=== PATIENT | male | born 1990 | race Caucasian/White ===

== ENCOUNTER 2018-10-26 09:54 | Emergency (ER) | payer OTHER, SELFPAY ==
[2018-10-26 10:05] VITALS: BP 151/108; PULSE 129; RESP 18; TEMP 37.1; O2SAT 98
--- NOTE | 2018-10-26 10:15 | DI.RAD_ITS ---
SYMPTOM/DIAGNOSIS: PAIN AFTER FALL RIGHT SHOULDER: No fracture or dislocation is seen. IMPRESSION: Negative right shoulder.
--- NOTE | 2018-10-26 10:23 | ED.GENADUL_ITS ---
Discharge Plan Disposition Patient Disposition: HOME Condition: Good Discharge Details Chief Complaint: Orthopedic Clinical Impression: Injury of shoulder, right Primary Care Provider: Jace Thakkar ED Provider: Serge Swan Home Meds and New Rx's Prescriptions: Continued omeprazole 20 MG capsule,delayed release(DR/EC) 40 mg PO DAILY 30 Days Qty: 60 RF: 0 cyclobenzaprine 10 MG tablet 10 mg PO TID prn 10 Days Qty: 30 RF: 0 amlodipine 5 MG tablet 5 mg PO DAILY Qty: 30 RF: 11 naproxen sodium [Anaprox DS] 550 MG tablet 550 mg PO Q12H PRN Qty: 30 RF: 0 lisinopril 30 MG tablet 30 mg PO DAILY Qty: 90 RF: 3 Metoprolol Succinate 50 MG TAB.ER.24H 100 mg PO DAILY Qty: 60 RF: 11 Discharge Instructions Instructions: Shoulder Sprain (ED), Shoulder Pain (ED) Additional Instructions: Continue your prescribed Aleve, and may use Tylenol 650-1000 mg every 6 hours as needed for pain. Apply ice to area to reduce discomfort. Please wear sling for comfort. We have placed your name on the follow-up list for an appointment in orthopedic clinic. Please call [phone] tomorrow after the clinic has had an ability to review your case. Medical Decision Making 28-year-old male who slipped and fell onto his right shoulder with a lateral blow 2 days ago. No other injury at that time. Now with persistent aching right shoulder pain. Differential diagnosis includes subluxation, contusion, underlying fracture or AC joint injury. He does have mild tachycardia but has not taken his prescribed metoprolol this morning as this is normal routine Patient was referred for X ray which does not reveal an underlying fracture or dislocation. I question high riding clavicular and an AC joint separation. Additionally, cannot rule out SLAP lesion or rotator cuff injury. Patient placed in sling, discussed with him the importance of follow-up for recheck. He will manage the discomfort conservatively at home with ice and [id number] NSAIDs HPI General Mode of arrival: ambulatory . Date/Time Provider Initiated Documentation: 10/26/18 10:15 . Limitations to Documentation: no limitations . Information obtained by: patient . History of Present Illness 28 year old M presents to the emergency department with the chief complaint of Lateral blow to right shoulder 2 days ago, aching pain, described as moderate, Quality is described as aching, and is localized to the right and upper extremity. Patient reports no radiation. Patient started experiencing this day(s) and it has been constant. Immobilization improves symptom(s), and Rest improves symptom(s), No exacerbating factors reported and Movement worsens symptoms . Patient notes no other symptoms.; denies chest pain, headaches and shortness of breath. Related Data Home Medications Medication Instructions Recorded Confirmed amlodipine 5 mg PO DAILY #30 tab-cap 01/28/18 cyclobenzaprine 10 mg PO TID prn 10 Days #30 01/28/18 tab-cap naproxen sodium [Anaprox DS] 550 mg PO Q12H PRN #30 tab-cap 01/28/18 omeprazole 40 mg PO DAILY 30 Days #60 tab-cap 01/28/18 lisinopril 30 mg PO DAILY #90 tab-cap 02/08/18 Previous Rx's Medication Instructions Recorded amlodipine 5 mg PO DAILY #30 tab-cap 01/28/18 cyclobenzaprine 10 mg PO TID prn 10 Days #30 01/28/18 tab-cap naproxen sodium [Anaprox DS] 550 mg PO Q12H PRN #30 tab-cap 01/28/18 omeprazole 40 mg PO DAILY 30 Days #60 tab-cap 01/28/18 lisinopril 30 mg PO DAILY #90 tab-cap 02/08/18 Allergies Allergy/AdvReac Type Severity Reaction Status Date / Time No Known Allergies Allergy Unverified 02/08/18 08:28 General Stated Complaint: Orthopedic LEV: 4 Review of Systems Review of Systems 6 systems reviewed and otherwise neg [facility] Surgical History Bone to lungs Social History adopted: Yes Smoking/Tobacco Use Status: Never seatbelt use: always helmet use: Yes helmet use: always Exam Narrative Exam Narrative: GEN: awake, alert, oriented 3. Pleasant, well groomed, interactive. HEAD: Normocephalic, atraumatic ENT: Mucous membranes moist, oropharynx unremarkable, External ear exam unremarkable EYES: PERRL, EOMI NECK: Full ROM, no TEAGAN, no menigismus CHEST/RESP: Nontender, clear to auscultation bilateral, no wheeze/rhonchi/rales CARDIOVASCULAR: Regular and tachycardic, no murmur, rub shaniqua. 2+ Rad pulse bilateral ABDOMEN: Soft, nontender, no mass. +Bowel sounds EXT: Right range of motion of the upper extremity limited by pain. The right upper extremity is diffusely tender over the anterior humeral head and AC joint. 2+ distal radial pulse bilaterally. Sensation intact throughout. Neuro: Grossly normal neurologic exam, conversant, interactive. Psych: Speech fluent, thoughts congruent, affect normal Course Vital Signs Temperature 37.1 C 10/26/18 10:05 Pulse 129 H 10/26/18 10:05 Respiratory Rate 18 10/26/18 10:05 Blood Pressure 151/108 H 10/26/18 10:05 Pulse Oximetry 98 10/26/18 10:05 Temperature 37.1 C 10/26/18 10:05 Temperature Source Temporal Artery Scan 10/26/18 10:05 Pulse 129 H 10/26/18 10:05 Respiratory Rate 18 10/26/18 10:05 Respiratory Effort Non-Labored 10/26/18 10:05 Blood Pressure 151/108 H 10/26/18 10:05 Blood Pressure Position Sitting 10/26/18 10:05 Pulse Oximetry 98 10/26/18 10:05 Oxygen Delivery Method Room Air 10/26/18 10:05 Oxygen Flow Rate 0 10/26/18 10:05
--- NOTE | 2018-10-26 10:23 | NUR.NOTE ---
Nursing Note: Off unit to XR
== END 2018-10-26 10:52 | disposition home or self-care (01) ==
PROVIDERS: Emergency Provider Emergency Medicine; PCP Family Medicine
DX: S49.91XA Unspecified injury of right shoulder and upper arm, initial encounter (principal); W00.0XXA Fall on same level due to ice and snow, initial encounter; I10 Essential (primary) hypertension
CPT/HCPCS: 99283; 73030; L3650

== ENCOUNTER 2019-01-10 10:22 | Outpatient (CLI) | payer OTHER, SELFPAY ==
--- NOTE | 2019-01-10 10:32 | DI.RAD_ITS ---
SYMPTOM/DIAGNOSIS: F/U RIGHT SHOULDER: No soft tissue, bony or joint abnormality is seen.
== END 2019-01-10 10:42 ==
PROVIDERS: PCP Family Medicine; Visit Provider Orthopaedic Surgery
DX: S43.51XD Sprain of right acromioclavicular joint, subsequent encounter (principal)
CPT/HCPCS: 73030

== ENCOUNTER 2019-02-24 23:10 | Emergency (ER) | payer OTHER, SELFPAY ==
[2019-02-24 23:14] VITALS: BP 162/90; PULSE 125; RESP 18; TEMP 36.5; O2SAT 98
--- NOTE | 2019-02-24 23:43 | W.ED.GENAD ---
Discharge Plan Disposition Patient Disposition: HOME Condition: Good Discharge Details Chief Complaint: Abd Prob Clinical Impression: Abscess Primary Care Provider: Manuel Rivera ED Provider: Robinson Baca Home Meds and New Rx's Prescriptions: New doxycycline hyclate 100 mg tablet 100 mg PO BID Qty: 20 RF: 0 No Action naproxen sodium [Anaprox DS] 550 mg tablet 550 mg PO Q12H PRN Qty: 30 RF: 0 Metoprolol Succinate 50 MG TAB.ER.24H 100 mg PO DAILY Qty: 60 RF: 11 amlodipine 5 mg tablet 5 mg PO DAILY Qty: 30 RF: 11 lisinopril 30 mg tablet 30 mg PO DAILY Qty: 90 RF: 3 Discharge Instructions Instructions: Abscess (ED) Additional Instructions: Please take Tylenol and Motrin as needed for pain. Please take the antibiotic as directed. If you notice any worsening of your pain, symptoms, redness, or swelling please return immediately for reevaluation. If you notice any worsening of your symptoms, or any new symptoms such as vomiting, diarrhea, fever, chills, shortness of breath, chest pain, numbness, weakness, or fainting , please return immediately to the emergency department for reevaluation. Please follow up with your primary care provider as soon as possible for reassessment and reevaluation. As always, it was a pleasure participating in your medical care today. Stand Alone Forms: Work Release Referrals: Manuel Rivera [Primary Care Provider] - Medical Decision Making This is a pleasant 28-year-old male who presents today for evaluation of a firm external lesion on his right scrotum. Patient states that he noticed that this morning, however he chronically had a small lesion there in the past, but it is notably worsened. He denies any recent trauma, fever, or chills. He denies any history of STDs. Exam demonstrates a notably fluctuant lesion on the superficial component of the scrotum, no evidence of deep involvement. Bedside ultrasound confirms loculated fluid collection. Signs and symptoms are notably concerning for abscess in conjunction with the evidence of erythema noted and the right inguinal lymph node. Limited bedside ultrasound shows no evidence of involvement in the deep structures, and no area of concern close to the testicles. Testicles are actually completely nontender, cremasteric reflexes present bilaterally. The patient's scrotum of the area of fluid collection was anesthetized with 2 mL's of lidocaine with epinephrine, an 18-gauge needle was then placed and a notable amount of initially purulent followed by slightly serous fluid was removed patient states that the pain is notably improved after this. He is feeling much better postprocedure. There is no evidence of subcutaneous crepitus on exam, no significant traveling erythema going up the groin, to the abdomen, or to the rest of the scrotum. He has no red flags of diabetes or immunosuppression. Signs and symptoms at this time are clinically inconsistent with necrotizing fasciitis or Fourniers gangrene. The patient is afebrile even on evaluation with oral temperature, he is feeling much better after the I&D, and feels comfortable going home. Do feel that the patient would benefit from treatment for cellulitis. With evidence of abscess we will prescribe doxycycline, we will give the first dose here today. We will also give 250 mg of IM Rocephin here. We will have the patient return within 48 hours for wound check. If he is improving no additional management will be indicated however we will recommend continuation of antibiotics. He is worsening he may require further laboratory evaluation and imaging. I do not see any current clinical indication at this time for further laboratory work-up or imaging with his notable improvement of his symptoms after I&D, signs and symptoms clinically consistent with mild superficial abscess. I have extensively reviewed the treatment plan and discharge instructions with the patient and their family. I have addressed all patient concerns at this time. The patient and family was made aware of what symptoms to monitor for that would warrant a return to the emergency department. Discussed the plan with the patient and family, they demonstrate verbal understanding and agreement with our assessment and plan at this time. HPI General Date/Time Provider Initiated Documentation: 02/24/19 23:12. HPI Narrative: This is a 28-year-old male with a past medical history of hypertension who presents today for evaluation of lump in his right groin. Patient states that this morning he woke up and noticed a firm red lesion in his scrotum on the right-hand side, as well as a mild lump in his right groin. He denies any trauma, he does do heavy lifting, states that this was unrelated. He does admit to a history of a small lump on his scrotum in the past year, but denies ever being this become painful. He denies any dysuria, hematuria, hematospermia, testicular pain, penile pain, history of MRSA, or history of STD. He did have intercourse last night and this was otherwise unremarkable. He denies any other complaints, and any other associated factors. Pain is made worse with palpation and movement. He has not taken any NSAIDs for pain relief. Related Data Home Medications Medication Instructions Recorded Confirmed naproxen sodium 550 mg tablet 550 mg PO Q12H PRN #30 tab-cap 11/01/18 02/24/19 amlodipine 5 mg tablet 5 mg PO DAILY #30 tab-cap 01/26/19 02/24/19 lisinopril 30 mg tablet 30 mg PO DAILY #90 tab-cap 02/15/19 02/24/19 doxycycline hyclate 100 mg PO BID #20 tab 02/25/19 Previous Rx's Medication Instructions Recorded naproxen sodium 550 mg tablet 550 mg PO Q12H PRN #30 tab-cap 11/01/18 amlodipine 5 mg tablet 5 mg PO DAILY #30 tab-cap 01/26/19 lisinopril 30 mg tablet 30 mg PO DAILY #90 tab-cap 02/15/19 doxycycline hyclate 100 mg PO BID #20 tab 02/25/19 Allergies Allergy/AdvReac Type Severity Reaction Status Date / Time No Known Allergies Allergy Unverified 02/24/19 23:23 General Stated Complaint: Abd Prob LEV: 3 Review of Systems Review of Systems All systems reviewed & are unremarkable except as noted in HPI and below PFSH Surgical History Hx of umbilical hernia repair (Resolved) Bone to lungs Social History Smoking/Tobacco Use Status: Never Alcohol Intake: current Alcohol Intake frequency: a few times a month Drug use: Never Adopted: Yes Seatbelt use: always Helmet use: Yes Helmet use: always Do you feel safe at home: Yes Do you feel safe in your relationship?: Yes Exam Narrative Exam Narrative: 1.Const: Well-nourished, Well-developed, appearing stated age 2.Eyes: PERRL, no conjunctival injection, and symmetrical lids. 3.ENT: Atraumatic external nose and ears. Moist MM. Neck: Symmetric, trachea midline, No thyromegaly. 4.CVS: +S1/S2, No murmurs or gallops. Peripheral pulses 2+ and equal in all extremities. Brisk capillary refill in all extremities. 5.RESP: Unlabored respiratory effort. Clear to auscultation bilaterally. No wheezes rales or rhonchi 6.GI: Soft, Nontender/Nondistended, No hepatosplenomegaly. No guarding or rebound. Genital exam demonstrates bilaterally descended nontender testicles. Cremasteric reflex present bilaterally. Penis is nontender, no lesions, vesicles, ulcers, or penile discharge. The right scrotum at the proximal component demonstrates a notably superficial area that is firm, erythematous, and fluctuant. Bedside limited ultrasound demonstrates evidence of a fluid collection in the external scrotal skin. No evidence of deep involvement. This area is roughly 7 cm away from the patient's testicles. Few loculations are noted. The patient also has a notable lymph node present in the right groin as confirmed by bedside ultrasound. No evidence of fluctuance or abscess there. 7.MSK: Normocephalic/Atraumatic, Extremities w/o deformity or ttp No cyanosis or clubbing, Normal movement of all extremities 8.Skin: Warm, Dry. No rashes or lesions. 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 Sensation grossly intact, no focal neurologic deficits. 10.Psych: (AAO) x3. Appropriate mood and affect Course Vital Signs Temperature 36.5 C 02/24/19 23:14 Pulse 125 H 02/24/19 23:14 Respiratory Rate 18 02/24/19 23:14 Blood Pressure 162/90 H 02/24/19 23:14 Pulse Oximetry 98 02/24/19 23:14 Temperature 36.5 C 02/24/19 23:14 Temperature Source Temporal Artery Scan 02/24/19 23:14 Pulse 125 H 02/24/19 23:14 Respiratory Rate 18 02/24/19 23:14 Respiratory Effort 02/24/19 23:14 Blood Pressure 162/90 H 02/24/19 23:14 Pulse Oximetry 98 02/24/19 23:14 Oxygen Delivery Method Room Air 02/24/19 23:14 Oxygen Flow Rate 0 02/24/19 23:14 Pain Level 10 02/24/19 23:21
[2019-02-24] MEDS: Ibuprofen 800 MG TAB PO (23:56)
[2019-02-24] MEDS: Acetaminophen 500 MG TAB 1000 MG PO (23:56)
[2019-02-24] MEDS: Doxycycline Hyclate 100 MG CAP PO (23:56)
[2019-02-25] MEDS: cefTRIAXone 250 MG VIAL IM (00:25)
[2019-02-25 00:32] VITALS: BP 150/109; PULSE 110; RESP 18; O2SAT 98
--- NOTE | 2019-02-27 09:23 | PDOC.ERCMPRO ---
Care Management Progress Note 02/27-Dr. Baca requested urology f/u in one week for scrotal abscess. BRAYDON Escudero faxed referral on 02/25.
[2019-02-27 13:48] LABS: Chlamydia Result Negative; GC Result Negative; Specimen Description URETHRA
== END 2019-02-25 00:25 | disposition home or self-care (01) ==
PROVIDERS: Emergency Provider Student in an Organized Health Care Education/Training Program; PCP Family Medicine
DX: N49.2 Inflammatory disorders of scrotum (principal)
CPT/HCPCS: 10160; 87491; 87591; 96372; 87070; 87205; J0696

== ENCOUNTER 2019-02-26 09:35 | Emergency (ER) | payer OTHER, SELFPAY ==
[2019-02-26] VITALS (72 sets, daily range): BP systolic 94–139; BP diastolic 67–95; PULSE 70–101; RESP 15–16; TEMP 36.6–36.8; O2SAT 94–100
--- NOTE | 2019-02-26 09:37 | W.ED.GENAD ---
Discharge Plan Disposition Patient Disposition: HOME Condition: Improving Discharge Details Chief Complaint: Recheck Clinical Impression: Abscess of scrotal wall, Epididymitis Primary Care Provider: Manuel Rivera ED Provider: Robinson Evans Home Meds and New Rx's Prescriptions: New amoxicillin-pot clavulanate [Augmentin] 875-125 mg tablet 1 tab PO BID Qty: 20 RF: 0 No Action naproxen sodium [Anaprox DS] 550 mg tablet 550 mg PO Q12H PRN Qty: 30 RF: 0 Metoprolol Succinate 50 MG TAB.ER.24H 100 mg PO DAILY Qty: 60 RF: 11 amlodipine 5 mg tablet 5 mg PO DAILY Qty: 30 RF: 11 lisinopril 30 mg tablet 30 mg PO DAILY Qty: 90 RF: 3 doxycycline hyclate 100 mg tablet 100 mg PO BID Qty: 20 RF: 0 Discharge Instructions Instructions: Epididymitis (ED), Abscess (ED) Additional Instructions: Please take the Augmentin as directed. Please leave the packing in until you are seen by your urologist within the next 24 to 48 hours. Please do not submerge your scrotum or allow any significant water to get into it. Please do not miss your urology appointment please take 1000 mg of Tylenol every 6 hours and 800 mg of ibuprofen every 6 hours for control of your pain. If you notice any worsening of your symptoms, or any new symptoms such as vomiting, diarrhea, fever, chills, shortness of breath, chest pain, numbness, weakness, or fainting , please return immediately to the emergency department for reevaluation. Please follow up with your primary care provider as soon as possible for reassessment and reevaluation. As always, it was a pleasure participating in your medical care today. Referrals: Manuel Rivera [Primary Care Provider] - Discharge Data Discharge Date/Time-TO BE ENTERED AT DEPARTURE: 02/26/19 16:38 Medical Decision Making This is a pleasant 28-year-old male who presents for evaluation of wound recheck. Patient was seen and assessed 2 days ago with evidence of redness, erythema, tenderness and bedside ultrasound showing evidence of an isolated abscess on his scrotum, no red flags of fever, diabetes, or signs or symptoms of necrotizing fasciitis or Loreto's gangrene. At that time his abscess was I indeed, there was some purulent discharge but also a small amount of serous fluid that came out during the I&D. Started on doxycycline. He has continuation of his pain since then, minimal improvement of his symptoms, he is slightly tachycardic but improved compared to his last visit. He is still afebrile, pain is better than his last visit. As discussed with him on his previous visit since he does not have significant improvement I do feel that further work-up is indicated at this time. We will get labs, CT scan to evaluate for any other atypical etiology, reassess and rehydrate. 1:[address] results per virtual radiology demonstrated no severe findings aside for mild bilateral hydroceles, I did discuss the case with the radiologist, and they state that it is difficult for further evaluation secondary to the imaging modality. Patient continues to show no tenderness of hydrocele himself, or the testicles. There is tenderness on the scrotal tissue though. I contacted surgery and discussed the case with Dr. Garner, she came and assessed the patient herself and reviewed the images. She agrees that there is evidence of very mild scrotal cellulitis and potential small mild scrotal abscess. She also believes that the symptoms are inconsistent with severe epididymitis, severe infected hydrocele, or severe testicular orchitis or infection. She did offer to again aspirate or I&D the scrotum, however the patient is refusing that at this time. We did reach out to urology but unfortunately were unable to get a hold of Dr. Stevens to the urologist because it is a weekend. Dr. Garner recommends outpatient ultrasound when available and continued close urology follow-up. She also recommends altering antibiotic coverage to Augmentin for better gram-negative coverage and we will switch to this instead. boiler mechanic did come in and performed the ultrasound even though it is a weekend. Ultrasound demonstrates 2 separate etiologies, one is an abscess over the scrotum, and then distinctly separate further away there is evidence of mild epididymitis. With the absence of white count, but elevated ESR and CRP, we did contact [facility] and discussed the case with Dr. Mota the urologist. All images were forward to [facility], and after review and review of the labs, the case was discussed with Dr. Mota and he feels that the abscess should be I&D it again, packed, and he does agree with the antibiotic alteration/addition. He also recommends close follow-up with urology. He does not feel that the patient needs to be transferred emergently, and upon review of the case does not feel that the symptoms are indicative of any other acute urologic pathology requiring immediate urology evaluation. A repeat INR and was warmed tolerated tolerated this well, it was packed with iodoform gauze. Augmentin was added to his antibiotic regimen. At this time patient is feeling much better, heart rate is 85, no white count. Pain is well controlled. Patient will be discharged with close follow-up with urology in the next 48 hours. We discussed red flags for which to immediately return. I have extensively reviewed the treatment plan and discharge instructions with the patient and their family. I have addressed all patient concerns at this time. The patient and family was made aware of what symptoms to monitor for that would warrant a return to the emergency department. Discussed the plan with the patient and family, they demonstrate verbal understanding and agreement with our assessment and plan at this time. At this time the patient continues to show no signs clinically indicative of necrotizing fasciitis, foreign years gangrene, or pyocele. addendum created by Kamran Larios MD on 02/26/2019 11:06:00 AM EDT THIS REPORT CONTAINS FINDINGS THAT MAY BE CRITICAL TO PATIENT CARE. The findings were verbally communicated via telephone conference with ROBINSON EVANS at 11:05 AM EDT on 02/26/2019. The findings were acknowledged and understood. He performed an ultrasound on the right scrotum. He states that there is a loculated appearance to a right hydrocele which most likely represents hydrocele and infection. He states the patient's right testis is more inferior. Consequently the low attenuation area more superiorly may represent the pyocele/infection Initial report created on 02/26/2019 10:56:21 AM EDT EXAM: CT Abdomen and Pelvis With Contrast EXAM DATE/TIME: 02/26/2019 9:53 AM CLINICAL HISTORY: 28 years old, male; Signs and symptoms; Other: Right scrotal lesion and right inguinal lump; Prior surgery; Surgery date: 6+ months; Surgery type: Hernia repair; Additional info: Right scrotal lesion and right inguinal lump for 2days TECHNIQUE: Imaging protocol: Axial computed tomography images of the abdomen and pelvis with intravenous contrast. Coronal and sagittal reformatted images were created and reviewed. Radiation optimization: All CT scans at this facility use at least one of these dose optimization techniques: automated exposure control; mA and/or kV adjustment per patient size (includes targeted exams where dose is matched to clinical indication); or iterative reconstruction. Contrast material: OMNIPAQUE 350; Contrast volume: 100 ml; Contrast route: IV; COMPARISON: No relevant prior studies available. FINDINGS: ABDOMEN: Liver: Normal. No mass. Gallbladder and bile ducts: Normal. No calcified stones. No ductal dilation. Pancreas: Normal. No ductal dilation. Spleen: Normal. No splenomegaly. Adrenals: Normal. No mass. Kidneys and ureters: Normal. No hydronephrosis. Stomach and bowel: Normal. No obstruction. No mucosal thickening. Appendix: Normal appendix. PELVIS: Bladder: Unremarkable as visualized. Reproductive: There may be bilateral hydroceles. ABDOMEN and PELVIS: Intraperitoneal space: Normal. No free air. No significant fluid collection. Bones/joints: No acute fracture. No dislocation. Soft tissues: Unremarkable. Vasculature: Normal. No abdominal aortic aneurysm. Lymph nodes: Normal. No enlarged lymph nodes. IMPRESSION: There may be bilateral hydroceles. Recommend scrotal ultrasound for further evaluation Dictated and Authenticated by: Kamran Larios MD. Ordering:MANUELA Bowers MD COMPARISON: No relevant prior studies available. FINDINGS: Right Testicle: Right testis measures 4.1 x 2.7 cm Peak systolic velocity right testis 6 cm/s. Left Testicle: Left testis measures 3.5 x 2.3x 2.8 cm Peak systolic velocity in the left testis 5 cm/s Epididymides: 5 mm left spermatocele Right epididymis measures 1.3 x 1.4 x 1.3 cm. Hyperemic right epididymis. Findings may represent epididymitis. Scrotum: Right scrotal wall abscess measuring 5 x 4 x 3.8 cm. The wall is very vascular. It contains cystic and solid components. The cystic components contain septations and debris. Right scrotal wall thickening 11 mm. 6 mm varicocele on the left IMPRESSION: [employer] Preliminary Radiology Report BLANKET INSPECTOR (QA) DISCREPANCY? If there is a discrepancy between the preliminary and final interpretation, please notify [facility] via [email or web address]. If you do not have access to our QA portal, call our QA team at [phone] CONFIDENTIALITY STATEMENT This report is intended only for the use of the referring physician, and only in accordance with law, If you received this in error, call [phone] Page 2 of 2 1. Right scrotal wall abscess measuring 5 x 4 x 3.8 cm. The wall is very vascular. It contains cystic and solid components. The cystic components contain septations and debris. 2. Right epididymis measures 1.3 x 1.4 x 1.3 cm. Hyperemic right epididymis. Findings may represent epididymitis. Thank you for allowing us to participate in the care of your patient. Dictated and Authenticated by: Kamran Larios MD 02/26/2019 3:04 PM Eastern Time ([place] & [place]) HPI General Date/Time Provider Initiated Documentation: 02/26/19 09:37. HPI Narrative: This is a pleasant 28-year-old male with a past medical history of hypertension who presents for wound recheck. He was seen and assessed here 2 days ago, at that time there was evidence of mild isolated scrotal cellulitis, small abscess which was confirmed to be isolated on bedside ultrasound which was incised and drained successfully with notable improvement of his pain. He was afebrile at that time, and showed no clinical evidence of necrotizing fasciitis, fever, or severe illness. He was discharged home with instructions to return in 48 hours for wound recheck. He was started on doxy, morning and recommended continue Tylenol and Motrin. He presents today with no significant improvement of his symptoms even while taking the doxycycline. Pain is slightly improved but certainly not resolved. Redness and swelling still present. Patient denies any dysuria, testicular pain, urethral pain, burning with urination, abdominal pain, nausea, vomiting, diarrhea, fever or chills. He denies any other modifying factors. Related Data Home Medications Medication Instructions Recorded Confirmed naproxen sodium 550 mg tablet 550 mg PO Q12H PRN #30 tab-cap 11/01/18 02/26/19 amlodipine 5 mg tablet 5 mg PO DAILY #30 tab-cap 01/26/19 02/26/19 lisinopril 30 mg tablet 30 mg PO DAILY #90 tab-cap 02/15/19 02/26/19 doxycycline hyclate 100 mg PO BID #20 tab 02/25/19 02/26/19 amoxicillin-pot clavulanate 1 tab PO BID #20 tab 02/26/19 [Augmentin] Previous Rx's Medication Instructions Recorded naproxen sodium 550 mg tablet 550 mg PO Q12H PRN #30 tab-cap 11/01/18 amlodipine 5 mg tablet 5 mg PO DAILY #30 tab-cap 01/26/19 lisinopril 30 mg tablet 30 mg PO DAILY #90 tab-cap 02/15/19 doxycycline hyclate 100 mg PO BID #20 tab 02/25/19 amoxicillin-pot clavulanate 1 tab PO BID #20 tab 02/26/19 [Augmentin] Allergies Allergy/AdvReac Type Severity Reaction Status Date / Time No Known Allergies Allergy Unverified 02/26/19 09:46 General LEV: 3 Review of Systems Review of Systems All systems reviewed & are unremarkable except as noted in HPI and below PFSH Surgical History Hx of umbilical hernia repair (Resolved) Bone to lungs Social History Smoking/Tobacco Use Status: Current every day Tobacco Type: smokeless tobacco Alcohol Intake: current Alcohol Intake frequency: a few times a month Drug use: Never Adopted: Yes Seatbelt use: always Helmet use: Yes Helmet use: always Do you feel safe at home: Yes Do you feel safe in your relationship?: Yes Exam Narrative Exam Narrative: 1.Const: Well-nourished, Well-developed, appearing stated age 2.Eyes: PERRL, no conjunctival injection, and symmetrical lids. 3.ENT: Atraumatic external nose and ears. Moist MM. Neck: Symmetric, trachea midline, No thyromegaly. 4.CVS: +S1/S2, No murmurs or gallops. Peripheral pulses 2+ and equal in all extremities. Brisk capillary refill in all extremities. 5.RESP: Unlabored respiratory effort. Clear to auscultation bilaterally. No wheezes rales or rhonchi 6.GI: Soft, Nontender/Nondistended, No hepatosplenomegaly. No guarding or rebound. Patient demonstrates bilateral cremasteric reflex, no testicular or epididymal tenderness. No pain or tenderness over the penile shaft. No urethral discharge. Right proximal scrotum demonstrates continued mild erythema which is improved compared to prior visit, still notable firmness and mild fluctuance over the right upper scrotum. No subcutaneous crepitus. There is also a small amount of erythema over the right inguinal canal on top of a tender nonfluctuant lymph node. Penis demonstrates no evidence of ulcers, lesions or vesicles. 7.MSK: Normocephalic/Atraumatic, Extremities w/o deformity or ttp No cyanosis or clubbing, Normal movement of all extremities 8.Skin: Warm, Dry. 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 Sensation grossly intact, no focal neurologic deficits. 10.Psych: (AAO) x3. Appropriate mood and affect
--- NOTE | 2019-02-26 09:49 | DI.COMBO_ITS ---
SYMPTOM/DIAGNOSIS: RT SCROTAL LESION, RT INGUINAL LUMP, SCROTAL SWELLING SCROTAL ULTRASOUND: Scrotal ultrasound was performed according to the usual protocol. The testes are unremarkable in appearance with normal symmetrical vascular flow. There is increased flow and mildly enlarged right epididymis consistent with epididymitis. There appears to be a right scrotal wall abscess measuring 5 by 4 by 3.8 cm. CONCLUSION: Probable scrotal wall abscess. Please correlate clinically.
--- NOTE | 2019-02-26 09:49 | DI.CT_ITS ---
SYMPTOM/DIAGNOSIS: RT SCROTAL LESION, RT INGUINAL LUMP ABDOMEN AND PELVIC CT: CT examination of the abdomen and pelvis was performed with a bolus infusion of 100 cc's of Omnipaque 350. Images obtained through the lung bases are unremarkable. The liver and spleen are normal in appearance as is the pancreas. Gallbladder and bile ducts are CT normal. Adrenals and kidneys appear normal. No urinary tract calcification or obstruction. No abdominal wall hernia is seen. No abdominal or pelvic adenopathy. Appendix appears normal. No evidence of diverticulitis or bowel obstruction. There is decreased attenuation of right testis and perhaps left testis. Scrotal ultrasound requested to evaluate the possibility of infection or torsion. CONCLUSION: Question low attenuation lesions of both testes. Scrotal ultrasound requested for correlation. No other significant findings.
[2019-02-26] MEDS: Normal Saline 1,000 ML 1000 ML IV ×2 (10:05→11:38)
[2019-02-26] MEDS: Acetaminophen 500 MG TAB 1000 MG PO (10:17)
[2019-02-26] MEDS: Ketorolac 30 MG/ML VIAL IVP (10:18)
[2019-02-26 10:19] LABS: Abs Immature Grans 0.02 k/cumm (0.0-0.09); Absolute Basophil Count 0.02 k/cumm (0.0-0.2); Absolute Eosinophil Count 0.23 k/cumm (0.0-0.7); Absolute Monocyte Count 0.86 k/cumm (0.11-0.7); Absolute Neutrophil Count 5.43 k/cumm (1.2-6.7); Basophils % 0.2; Eosinophils % 2.8; HGB 14.1 g/dL (13.5-17.5); Immature Grans % 0.2; Lymphocytes % 19.6; Mean Corp. HGB Concentration 34.4 g/dL (32.0-36.0); Mean Corpuscular Hemoglobin 27.9 pg (27.0-33.0); Mean Platelet Volume 9.4 fL (8.0-11.0); Monocytes % 10.5; Neutrophils % 66.7; Platelet Count 301 x1000/uL (130-400); RBC 5.06 m/cumm (4.50-6.00); RBC Distribution Width 13.5 % (11.8-14.1); White Blood Cell Count 8.16 k/cumm (4.4-10.8)
[2019-02-26 10:36] LABS: ALT 47 U/L (12-78); AST 25 U/L (15-37); Albumin 3.4 g/dL (3.4-5.0); Alkaline Phosphatase 103 U/L (46-116); Anion Gap 9.8 mmol/L (3-11); BUN 11 mg/dL (7-18); Bilirubin, Total 0.3 mg/dL (0.2-1.0); C-Reactive Protein 2.41 mg/dL (0.0-0.3); CO2 25.2 mmol/L (21.0-32.0); CREATININE 0.89 mg/dL (0.70-1.30); Calcium 8.7 mg/dL (8.5-10.1); Chloride 102 mmol/L (98-107); Glucose 110 mg/dL (70-100); Potassium 3.6 mmol/L (3.5-5.1); Sodium 137 mmol/L (136-145); Total Protein 7.6 g/dL (6.4-8.2)
[2019-02-26] MEDS: Omnipaque 350 MG/ML 100 ML BTL IV (10:46)
[2019-02-26] MEDS: Normal Saline Flush 10 ML SYR IVP (10:49)
[2019-02-26 10:55] LABS: ESR 28 MM/HR (0-15)
--- NOTE | 2019-02-26 10:56 | DI.VRAD_ITS ---
Addendum created by Kamran Larios MD on 02/26/2019 11:06:00 AM EDT THIS REPORT CONTAINS FINDINGS THAT MAY BE CRITICAL TO PATIENT CARE. The findings were verbally communicated via telephone conference with ESCOBAR EVANS at 11:05 AM EDT on 02/26/2019. The findings were acknowledged and understood. He performed an ultrasound on the right scrotum. He states that there is a loculated appearance to a right hydrocele which most likely represents hydrocele and infection. He states the patient's right testis is more inferior. Consequently the low attenuation area more superiorly may represent the pyocele/infection Initial report created on 02/26/2019 10:56:21 AM EDT EXAM: CT Abdomen and Pelvis With Contrast EXAM DATE/TIME: 02/26/2019 9:53 AM CLINICAL HISTORY: 28 years old, male; Signs and symptoms; Other: Right scrotal lesion and right inguinal lump; Prior surgery; Surgery date: 6+ months; Surgery type: Hernia repair; Additional info: Right scrotal lesion and right inguinal lump for 2days TECHNIQUE: Imaging protocol: Axial computed tomography images of the abdomen and pelvis with intravenous contrast. Coronal and sagittal reformatted images were created and reviewed. Radiation optimization: All CT scans at this facility use at least one of these dose optimization techniques: automated exposure control; mA and/or kV adjustment per patient size (includes targeted exams where dose is matched to clinical indication); or iterative reconstruction. Contrast material: OMNIPAQUE 350; Contrast volume: 100 ml; Contrast route: IV; COMPARISON: No relevant prior studies available. FINDINGS: ABDOMEN: Liver: Normal. No mass. Gallbladder and bile ducts: Normal. No calcified stones. No ductal dilation. Pancreas: Normal. No ductal dilation. Spleen: Normal. No splenomegaly. Adrenals: Normal. No mass. Kidneys and ureters: Normal. No hydronephrosis. Stomach and bowel: Normal. No obstruction. No mucosal thickening. Appendix: Normal appendix. PELVIS: Bladder: Unremarkable as visualized. Reproductive: There may be bilateral hydroceles. ABDOMEN and PELVIS: Intraperitoneal space: Normal. No free air. No significant fluid collection. Bones/joints: No acute fracture. No dislocation. Soft tissues: Unremarkable. Vasculature: Normal. No abdominal aortic aneurysm. Lymph nodes: Normal. No enlarged lymph nodes. IMPRESSION: There may be bilateral hydroceles. Recommend scrotal ultrasound for further evaluation Dictated and Authenticated by: Kamran Larios MD. Ordering:MANUELA Bowers MD
[2019-02-26 11:06] LABS: Bilirubin Negative (Negative); Blood Negative (Negative); Clarity Clear; Glucose Negative (Negative); Ketones Negative (Negative); Leukocyte Esterase Negative (Negative); Nitrite Negative (Negative); Urobilinogen 0.2 EU/dL (Up TO 0.2); pH 6.5 (5-8)
--- NOTE | 2019-02-26 12:38 | SCONE_ITS ---
Date of service: 02/26/19 Time of Service: 12:33 Assessment and Plan (1) Scrotal mass: Current visit: Yes Status: Acute 28 y/o male with a tender right scrotal mass. This is separate from the testicle on exam. He describes a small, chronic, previously palpable lump which may have been a sebaceous skin cyst vs. hydrocele that has become infected. Exam somewhat imited by induration but no signs of necrotizing soft tissue infection on exam. He does not appear to be septic. He is afebrile and his WBC is WNL. ESR and CRP are elevated. He has been on Doxycycline x 2 days without much improvement. Consider changing antibiotics to Augmentin for broader coverage. Recommend scrotal ultrasound when available. Also recommended outpatient follow-up with urology in the near future. Discussed with Dr. Evans. History of Present Illness Chief Complaint: Right scrotal pain/mass Narrative: 28 y/o male seen in the ED re: right scrotal pain/mass. Patient notes that he has had a small pea-sized lump on his right scrotum for a long time which had never bothered him until 02/24/19. He notes that he was awakened by pain in his right scrotum. He was evaluated in the ED and had an aspiration in the ED with Dr. Evans. Minimal purulent followed by serous fluid was obtained. Cultures reportedly only grew normal skin omar. Patient notes that he resolution of his pain on aspiration. Patient was started on Doxycycline and advised to return to the ED today for a wound check today. He still notes pa in/swelling/redness at this time. CT scan today demonstrated possible bilateral hydroceles per VRADS. On my review of the films, there does appear to be a cystic collection on the right. No obvious internal loculations or surrounding soft tissue stranding on my review. It is unclear if a scrotal ultrasound can be obtained on the weekend. General surgery evaluation was requested. Patient discussed with Dr. Evans. Consults Consult date: 02/26/19 Requesting physician: Robinson Evans Review of Systems Constitutional Denies chills, Denies fever(s) and Reports night sweats (2 nights ago) Genitourinary Reports genital pain and Reports scrotal swelling PFSH Surgical History Hx of umbilical hernia repair (Resolved) Bone to lungs Social History Smoking/Tobacco Use Status: Current every day Tobacco Type: smokeless tobacco Alcohol Intake: current Alcohol Intake frequency: a few times a month Drug use: Never Adopted: Yes Seatbelt use: always Helmet use: Yes Helmet use: always Do you feel safe at home: Yes Do you feel safe in your relationship?: Yes Exam Const General: cooperative, comfortable and no acute distress Orientation: alert and oriented x3 HENMT Head: normocephalic and atraumatic Resp Effort & Inspection: normal respiratory effort and able to speak in complete sentences Cardio Jugular venous pressure: no JVD Penis: normal penis Scrotum: scrotal swelling on the right (base of scrotum - swollen/indurated ~ 3x4cm, no drainage, mildly erythematous, no crepitus) Testes: normal and no testicular tenderness Other: no definite inguinal lymph nodes palpable on my exam Results Last Vital Signs Temp 36.8 C 02/26/19 11:29 Pulse 79 02/26/19 12:00 Resp 15 02/26/19 11:29 BP 118/70 02/26/19 12:00 Pulse Ox 97 02/26/19 12:10 Labs : 02/26/19 10:05 02/26/19 10:05 Laboratory Results - last 24 hr 02/26/19 02/26/19 02/26/19 10:05 10:05 11:00 WBC 8.16 RBC 5.06 Hgb 14.1 Hct 41.0 MCV 81.0 MCH 27.9 MCHC 34.4 RDW 13.5 Plt Count 301 MPV 9.4 Immature Gran % 0.2 Neutrophils % 66.7 Lymphocytes % 19.6 Monocytes % 10.5 Eosinophils % 2.8 Basophils % 0.2 Absolute Neutrophils 5.43 Absolute Lymphocytes 1.60 Absolute Monocytes 0.86 H Absolute Eosinophils 0.23 Absolute Basophils 0.02 ESR 28 H Sodium 137 Potassium 3.6 Chloride 102 Carbon Dioxide 25.2 Anion Gap 9.8 BUN 11 Creatinine 0.89 Estimated GFR/1.73 m2 >= 60.00 Glucose 110 H Calcium 8.7 Total Bilirubin 0.3 AST 25 ALT 47 Alkaline Phosphatase 103 C-Reactive Protein 2.41 H Total Protein 7.6 Albumin 3.4 Urine Color Yellow Urine Clarity Clear Urine pH 6.5 Ur Specific Hennessey 1.010 Urine Protein Negative Urine Ketones Negative Urine Blood Negative Urine Nitrite Negative Urine Bilirubin Negative Urine Urobilinogen 0.2 Ur Leukocyte Esterase Negative Urine Glucose Negative Imaging Abdomen CT scan report/results: report reviewed and image reviewed CT scan - pelvis: report reviewed and image reviewed Imaging Studies: Patient Name: AMERICO BRAUN HUnit #: [id number]: ER Ordering Provider: : REG ER Primary Care Provider: Manuel Rivera Date of Exam: 02/26/19Sex: M : 1990Age: 28 Exam(s) Addendum created by Kamran Larios MD on 02/26/2019 11:06:00 AM EDT THIS REPORT CONTAINS FINDINGS THAT MAY BE CRITICAL TO PATIENT CARE. The findings were verbally communicated via telephone conference with ROBINSON EVANS at 11:05 AM EDT on 02/26/2019. The findings were acknowledged and understood. He performed an ultrasound on the right scrotum. He states that there is a loculated appearance to a right hydrocele which most likely represents hydrocele and infection. He states the patient's right testis is more inferior. Consequently the low attenuation area more superiorly may represent the pyocele/infection Initial report created on 02/26/2019 10:56:21 AM EDT EXAM: CT Abdomen and Pelvis With Contrast EXAM DATE/TIME: 02/26/2019 9:53 AM CLINICAL HISTORY: 28 years old, male; Signs and symptoms; Other: Right scrotal lesion and right inguinal lump; Prior surgery; Surgery date: 6+ months; Surgery type: Hernia repair; Additional info: Right scrotal lesion and right inguinal lump for 2days TECHNIQUE: Imaging protocol: Axial computed tomography images of the abdomen and pelvis with intravenous contrast. Coronal and sagittal reformatted images were created and reviewed. Radiation optimization: All CT scans at this facility use at least one of these dose optimization techniques: automated exposure control; mA and/or kV adjustment per patient size (includes targeted exams where dose is matched to clinical indication); or iterative reconstruction. Contrast material: OMNIPAQUE 350; Contrast volume: 100 ml; Contrast route: IV; COMPARISON: No relevant prior studies available. FINDINGS: ABDOMEN: Liver: Normal. No mass. Gallbladder and bile ducts: Normal. No calcified stones. No ductal dilation. Pancreas: Normal. No ductal dilation. Spleen: Normal. No splenomegaly. Adrenals: Normal. No mass. Kidneys and ureters: Normal. No hydronephrosis. Stomach and bowel: Normal. No obstruction. No mucosal thickening. Appendix: Normal appendix. PELVIS: Bladder: Unremarkable as visualized. Reproductive: There may be bilateral hydroceles. ABDOMEN and PELVIS: Intraperitoneal space: Normal. No free air. No significant fluid collection. Bones/joints: No acute fracture. No dislocation. Soft tissues: Unremarkable. Vasculature: Normal. No abdominal aortic aneurysm. Lymph nodes: Normal. No enlarged lymph nodes. IMPRESSION: There may be bilateral hydroceles. Recommend scrotal ultrasound for further evaluation Dictated and Authenticated by: Kamran Larios MD. Ordering:MANUELA Bowers MD Ordered By: CC: Dictated By: Reports vrad 02/26/19 0953 02/26/19 1106 Transcribed By: Mable Bailey This is privileged, confidential information intended only for the provider named. Any use or distribution by any person other than this provider is stri ctly prohibited. If you receive this report in error, please notify us immediately at [phone] and return the original report to us at the address above. Thank-you.
[2019-02-26] MEDS: Amoxicillin 875/Clav. 125 TAB PO ×2 (13:46→16:36)
--- NOTE | 2019-02-26 15:04 | DI.VRAD_ITS ---
EXAM: US Scrotum and US Duplex Artery or Vein, Scrotum, Limited EXAM DATE/TIME: 02/26/2019 2:28 PM CLINICAL HISTORY: 28 years old, male; Scrotum pain and other: RT sided scrotal swelling/pain; Additional info: 1) ? RT scrotal wall abscess measuring 5 x 4 x 3.8 cm, vascular, with cystic and solid components. Some cystic components containing septations and debris. 2) ? thickened RT sided scrotal wall at 11 mm. 3)? Lt spermatocele measuring 5 x 5 x 5 mm TECHNIQUE: Imaging protocol: Real-time ultrasound of the scrotum. Real-time duplex ultrasound scan of the arterial or venous flow of the scrotum with B-mode, color Doppler flow and spectral waveform analysis. Limited exam. COMPARISON: No relevant prior studies available. FINDINGS: Right Testicle: Right testis measures 4.1 x 2.7 cm Peak systolic velocity right testis 6 cm/s. Left Testicle: Left testis measures 3.5 x 2.3x 2.8 cm Peak systolic velocity in the left testis 5 cm/s Epididymides: 5 mm left spermatocele Right epididymis measures 1.3 x 1.4 x 1.3 cm. Hyperemic right epididymis. Findings may represent epididymitis. Scrotum: Right scrotal wall abscess measuring 5 x 4 x 3.8 cm. The wall is very vascular. It contains cystic and solid components. The cystic components contain septations and debris. Right scrotal wall thickening 11 mm. 6 mm varicocele on the left IMPRESSION: 1. Right scrotal wall abscess measuring 5 x 4 x 3.8 cm. The wall is very vascular. It contains cystic and solid components. The cystic components contain septations and debris. 2. Right epididymis measures 1.3 x 1.4 x 1.3 cm. Hyperemic right epididymis. Findings may represent epididymitis. Dictated and Authenticated by: Kamran Larios MD. Ordering:MANUELA Bowers MD
--- NOTE | 2019-02-26 17:31 | NUR.NOTE ---
Nursing Note: Referral fax[facility] for follow up within the next 2 days. Kena Gutierrez.
== END 2019-02-26 16:38 | disposition home or self-care (01) ==
PROVIDERS: Emergency Provider Student in an Organized Health Care Education/Training Program; PCP Family Medicine
DX: N49.2 Inflammatory disorders of scrotum (principal); N45.1 Epididymitis; N43.3 Hydrocele, unspecified; I10 Essential (primary) hypertension
CPT/HCPCS: 36415; 55100; 80053; 85652; 87040; 96361; 96374; 99252; 99285; 74177; 76870; 81003; 85025; 86140; 87070; 87205; 99284; J1885; J3490

== ENCOUNTER 2019-03-17 06:12 | Day surgery (SDC) | payer OTHER, SELFPAY ==
[2019-03-17 06:21] VITALS: BP 143/96; PULSE 100; RESP 16; TEMP 36.9; O2SAT 98
[2019-03-17] MEDS: Lactated Ringers 1,000 ML 80 ML IV (06:57)
[2019-03-17] MEDS: ceFAZolin 2 GM/50 ML BAG IVPB (10:50)
--- NOTE | 2019-03-17 11:01 | SOFT_PTH ---
PATIENT: Willam Roberson LOC: [facility] U#:[id number] AGE/SX: 28/M ROOM: RE03/17/[address]: Lucien Stevens MD : 1990 BED: DIS: 03/17/2019 SPEC #: [id number] RECD: 03/17/19 12:40 STATUS: NEENA REJeremiah #: [id number] ENMA: 03/17/19 11:[address]: Lucien Stevens DEPT: Surgical Specimen RECD BY: Shy Major ENTERED: 03/17/19 12:41 SP TYPE: SOFT OTHR DR: Manuel Rivera MD Tissues: 1 - [facility]UE [facility] Procedures: GROSS AND MICRO LEVEL 4 IMMUNOPEROXIDASE STAIN Comments: [id number]
[2019-03-17] MEDS: Bupivacaine 0.5% Pres-Free 30 ML VIAL (11:22)
--- NOTE | 2019-03-17 11:35 | W.PM.DSUDISC ---
Discharge Plan Disposition Patient Disposition: HOME Condition: Stable Discharge Details Reason For Visit: surgery Attending Provider: Lucien Stevens Primary Care Provider: Manuel Rivera Home Meds and New Rx's Prescriptions: No Action naproxen sodium [Anaprox DS] 550 mg tablet 550 mg PO Q12H PRN Qty: 30 RF: 0 Metoprolol Succinate 50 MG TAB.ER.24H 100 mg PO DAILY Qty: 60 RF: 11 amlodipine 5 mg tablet 5 mg PO DAILY Qty: 30 RF: 11 lisinopril 30 mg tablet 30 mg PO DAILY Qty: 90 RF: 3 doxycycline hyclate 100 mg tablet 100 mg PO BID Qty: 20 RF: 0 amoxicillin-pot clavulanate [Augmentin] 875-125 mg tablet 1 tab PO BID Qty: 20 RF: 0 Discharge Instructions Additional Instructions: OK to remove dressings and bathe/shower in AM 03/18 follow up with me 7 to 14 days Work release note until pt seen by me in office No lifting over 20 pounds until seen in office Activity:: see above Remove Dressings/Wound Care:: 24 hours Shower/Bathe:: 24 hours Diet:: As Tolerated DS: Diagnosis Discharge Diagnosis (1) Scrotal mass: Status: Acute
[2019-03-17 12:23] VITALS: BP 113/71; PULSE 71; RESP 16; TEMP 36.1; O2SAT 97
--- NOTE | 2019-03-17 16:49 | ROE_ITS ---
DATE OF PROCEDURE: March 17, 2019 PREOPERATIVE DIAGNOSIS: Right scrotal mass. POSTOPERATIVE DIAGNOSIS: Same. PROCEDURE: Excision of right scrotal mass. SURGEON: Lucien Stevens M.D. ANESTHESIA: MAC with local. COMPLICATIONS: None. ESTIMATED BLOOD LOSS: < 50 cc's HISTORY: This is a 28-year-old gentleman who has had several encounters in the Emergency Room due to discomfort and a right scrotal mass. During one of these encounters the area was aspirated and the culture was negative. During another occasion the area was incised and packing was placed. He was treated with antibiotics to cut down on the inflammatory component and he presents now for exc ision of the residual mass. OPERATIVE REPORT: The patient was brought to the Operating Room on 03/17/19. After successful induct ion of general anesthesia, his genitalia was prepped and draped sterilely. An elongated, mobile mass was found in the upper right scrotum. The mass did not appear to be attach ed to either the testis or the spermatic cord. We made an elliptical incision overlying the mass and dissected the mass free from its surrounding tissue. The mass appeared to be cystic in nature with multiple fluid-filled components. Again, no attachment to either the spermatic cord or the testis was identified intraoperatively. Onc e the mass was completely removed it was sent to pathology for permanent section. Any bleeding point s that were encountered were cauterized using the hand-held Bovie. The surgical wound was closed in two layers. We reapproximated some of the underlying muscle using s imple, interrupted #2-0 Chromic sutures. We then closed the skin with simple, interrupted #4-0 Chrom ic sutures. Dermabond was applied, followed by a fluff dressing and scrotal support. The patient tolerated the procedure well with no complications. cc: Manuel Rivera M.D.
== END 2019-03-17 13:09 | disposition home or self-care (01) ==
PROVIDERS: PCP Family Medicine; Visit Provider Urology
PROC: (CPT 55175; principal; 2019-03-17 07:30)
DX: N50.89 Other specified disorders of the male genital organs (principal)
CPT/HCPCS: 55175; 88305; 88304; 88361; J0690; J1100; J1200; J1885; J2250; J2405; J3010

== ENCOUNTER 2021-02-03 07:48 | Emergency (ER) | payer OTHER, SELFPAY ==
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
[2021-02-03 07:51] VITALS: BP 145/92; PULSE 97; RESP 16; TEMP 36.8; O2SAT 98
--- NOTE | 2021-02-03 08:00 | DI.RAD_ITS ---
EXAM: XR FOOT RT COMPLETE CLINICAL HISTORY: pain R 1st MTP joint, r/o tophi, fx, foreign body. TECHNIQUE: 2D digital imaging was performed. COMPARISON: CR RIGHT ANKLE COMPLETE from 03/22/2018 FINDINGS: There is no evidence of acute fracture or diastasis of the Lisfranc joint. No radiopaque foreign bod y. Bone density is normal. No osseous lesions. IMPRESSION: No fracture evident. DATA REPOSITORY: RADIATION DOSE DELIVERED:
[2021-02-03] MEDS: Ibuprofen 600 MG TAB PO (08:10)
== END 2021-02-03 09:06 | disposition home or self-care (01) ==
PROVIDERS: Emergency Provider Physician Assistant; PCP Family Medicine
DX: M25.474 Effusion, right foot (principal)
CPT/HCPCS: 99283; 73630

== ENCOUNTER 2021-02-06 02:56 | Outpatient (CLI) | payer OTHER, SELFPAY ==
[2021-02-06 12:35] LABS: Hemoglobin A1C 5.1 % (<5.7)
[2021-02-06 12:52] LABS: Uric Acid 6.1 mg/dL (3.5-7.2)
[2021-02-06 13:05] LABS: Cholesterol 238 mg/dL (<200); HDL Cholesterol 33 mg/dL (40-60); Triglyceride 413 mg/dL (<150)
[2021-02-06 13:16] LABS: LDL CHOLESTEROL 127 mg/dL (<100)
== END 2021-02-06 02:57 | disposition home or self-care (01) ==
LOC: LOS 02:56
PROVIDERS: PCP Family Medicine; Visit Provider Nurse Practitioner Family
DX: E78.1 Pure hyperglyceridemia (principal); M25.474 Effusion, right foot; M79.674 Pain in right toe(s); Z13.1 Encounter for screening for diabetes mellitus
CPT/HCPCS: 36415; 80061; 83721; 83036; 84550

== ENCOUNTER 2021-06-12 17:33 | Outpatient (REF) | payer OTHER, SELFPAY ==
[2021-06-14 13:23] LABS: COVID-19 RT-PCR UVMMC Result Negative (Negative)
== END 2021-06-12 17:34 | disposition home or self-care (01) ==
LOC: LBN 17:33
PROVIDERS: PCP Nurse Practitioner Family; Visit Provider Nurse Practitioner Family
DX: Z20.822 Contact with and (suspected) exposure to COVID-19 (principal); R05 Cough
CPT/HCPCS: U0003

== ENCOUNTER 2021-09-24 02:38 | Outpatient (CLI) | payer OTHER, SELFPAY ==
[2021-09-24 08:08] LABS: HCT 43.3 % (40.0-50.0); HGB 14.8 g/dL (13.5-17.5); MCHC 34.2 % (32.0-36.0); MCV 84.7 fL (80-95); MPV 9.4 fL (8.0-11.0); Platelet Count 271 10^3/uL (130-400); RBC 5.11 10^6/uL (4.36-5.78); RDW 12.6 % (11.8-14.1); WBC 6.37 10^3/uL (4.4-10.8)
[2021-09-24 08:09] LABS: ESR 2 mm/hr (0-15)
[2021-09-24 09:13] LABS: ALT 51 U/L (16-63); AST 33 U/L (15-37); Albumin 3.9 g/dL (3.4-5.0); Alkaline Phosphatase 99 U/L (46-116); BUN 11 mg/dL (7-18); Bilirubin, Total 0.5 mg/dL (0.2-1.0); Calcium 9.1 mg/dL (8.5-10.1); Chloride 103 mmol/L (98-107); Creatine Kinase 132 U/L (39-308); Glucose 117 mg/dL (74-106); Sodium 141 mmol/L (136-145); TSH (W/Ref FT4) 0.68 uIU/mL (0.36-3.74); Total Protein 7.3 g/dL (6.4-8.2)
[2021-09-24 17:29] LABS: Rheumatoid Factor <8.6 IU/mL (<12.0)
[2021-09-25 09:46] LABS: Hepatitis B Surface Ag Negative (Negative)
[2021-09-25 10:00] LABS: Lyme Ab w Rflx to Lyme Confirm Negative (Negative)
[2021-09-25 10:20] LABS: Hepatitis C Ab w Rflx HCV PCR Negative (Negative)
[2021-09-25 10:57] LABS: HIV-1/2 Ag & Ab Screen Negative (Negative)
== END 2021-09-24 02:39 | disposition home or self-care (01) ==
LOC: LBO 02:38
PROVIDERS: PCP Nurse Practitioner Family; Visit Provider Family Medicine
DX: I10 Essential (primary) hypertension; M79.604 Pain in right leg; M79.605 Pain in left leg; Z11.4 Encounter for screening for human immunodeficiency virus [HIV]; Z11.59 Encounter for screening for other viral diseases
CPT/HCPCS: 36415; 80053; 82550; 85027; 85652; 86803; 87340; 87389; 84443; 86140; 86431; 86618

== ENCOUNTER 2022-08-02 05:45 | Emergency (ER) | payer SELFPAY ==
[2022-08-02] VITALS (15 sets, daily range): BP systolic 115–138; BP diastolic 79–92; PULSE 88–105; RESP 1–27; TEMP 36.9; O2SAT 94–98
--- NOTE | 2022-08-02 05:45 | RT.EKG_ITS ---
APPROVED REPORT Exam: Resting ECG Reason for Exam: chest pain Patient Location: E HR:106 bpm ECG Measurements Heart Rate 106 AXIS DE 168 P 57 QRSd 86 QRS -6 QT 336 T 9 QTc 446 Conclusion Sinus tachycardia...rate> 99. Sinus. No STEMI. I have reviewed and interpreted ECG and agree with software generated interpretation.
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
[2022-08-02] MEDS: Albuterol/Ipratropium 3 ML UPD VIAL UPD (06:35)
[2022-08-02] MEDS: Ketorolac 30 MG/ML VIAL IVP (06:35)
[2022-08-02 06:40] LABS: Abs Immature Grans 0.03 10^3/uL (0.0-0.06); Absolute Basophil Count 0.06 10^3/uL (0.0-0.2); Absolute Eosinophil Count 0.25 10^3/uL (0.0-0.7); Absolute Lymphocyte Count 1.59 10^3/uL (1.2-3.4); Absolute Monocyte Count 0.61 10^3/uL (0.1-0.8); Basophils % 0.8; Eosinophils % 3.3; HCT 43.9 % (40.0-50.0); HGB 15.1 g/dL (13.5-17.5); Immature Grans % 0.4; Lymphocytes % 21.1; MCH 29.4 pg (27.0-33.0); MCHC 34.4 % (32.0-36.0); MCV 86 fL (80-95); MPV 9.3 fL (8.0-11.0); Monocytes % 8.1; Neutrophils % 66.3; Platelet Count 242 10^3/uL (130-400); RBC 5.13 10^6/uL (4.36-5.78); RDW 12.2 % (11.8-14.1); WBC 7.54 10^3/uL (4.4-10.8)
--- NOTE | 2022-08-02 06:58 | DI.RAD_ITS ---
Exam(s) XR CHEST 2V PA LATERAL EXAM: XR CHEST 2V PA LATERAL CLINICAL HISTORY: cough, sob, r/o acute disease TECHNIQUE: 2D digital imaging was performed. COMPARISON: CR XR shoulder RT complete 2+V from 10/26/2018 FINDINGS: The heart is not enlarged. The lungs are clear and well expanded. No pleural effusion seen. Mediastin al contours appear intact. IMPRESSION: Normal chest. RADIATION DOSE DELIVERED: Total DLP
[2022-08-02 07:03] LABS: ALT 87 U/L (16-63); AST 54 U/L (15-37); Albumin 3.6 g/dL (3.4-5.0); Alkaline Phosphatase 97 U/L (46-116); Anion Gap 9.5 mmol/L (3-11); BUN 10 mg/dL (7-18); Bilirubin, Total 0.6 mg/dL (0.2-1.0); CO2 26.5 mmol/L (21.0-32.0); CREATININE 1.1 mg/dL (0.70-1.30); Calcium 9.2 mg/dL (8.5-10.1); Chloride 101 mmol/L (98-107); Estimated GFR 93.19 (mL/min/1.73m2); Glucose 141 mg/dL (74-106); Lipase 74 U/L (73-393); Magnesium 1.9 mg/dL (1.8-2.4); Potassium 3.5 mmol/L (3.5-5.1); Sodium 137 mmol/L (136-145); Total Protein 7.6 g/dL (6.4-8.2); Troponin I < 50 ng/L (<or=60)
[2022-08-02 07:14] LABS: D-Dimer 291 ng/mlFEU (<500)
--- NOTE | 2022-08-02 07:21 | DI.VRAD_ITS ---
PROCEDURE INFORMATION: Exam: XR Chest Exam date and time: 08/02/2022 6:58 AM Age: 31 years old Clinical indication: Cough and shortness of breath TECHNIQUE: Imaging protocol: Radiologic exam of the chest. Views: 2 views. COMPARISON: CR CHEST 2 VIEWS PA,LAT 02/04/2018 9:39 AM FINDINGS: Lungs: Mild chronic interstitial prominence. No consolidation. Pleural spaces: Unremarkable. No pleural effusion. No pneumothorax. Heart/Mediastinum: Unremarkable. No cardiomegaly. Bones/joints: Unremarkable. IMPRESSION: No acute findings. No radiographic evidence for pneumonia Dictated and Authenticated by: Ronan Naylor MD. Ordering:KRISTEN Rader MD
[2022-08-02] MEDS: predniSONE 20 MG TAB 60 MG PO (07:39)
[2022-08-02] MEDS: Acetaminophen 500 MG TAB 1000 MG PO (07:40)
== END 2022-08-02 08:22 | disposition home or self-care (01) ==
PROVIDERS: Emergency Provider Physician Assistant; PCP Nurse Practitioner Family
DX: J20.9 Acute bronchitis, unspecified (principal); R07.9 Chest pain, unspecified; I10 Essential (primary) hypertension; F17.290 Nicotine dependence, other tobacco product, uncomplicated; Z79.52 Long term (current) use of systemic steroids
CPT/HCPCS: 80053; 83690; 93005; 94640; 96374; 99284; 71046; 83735; 84484; 85025; 85379; 93010; J1885; J7512; J7620

== ENCOUNTER 2023-07-30 06:17 | Emergency (ER) | payer MEDICAID, SELFPAY ==
[2023-07-30 06:24] VITALS: BP 144/107; PULSE 93; RESP 16; TEMP 36.8; O2SAT 99
[2023-07-30 06:29] VITALS: RESP 16
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
[2023-07-30] MEDS: Ketorolac 30 MG/ML VIAL IM (06:46)
[2023-07-30] MEDS: Acetaminophen 500 MG TAB 1000 MG PO (06:46)
[2023-07-30 06:54] VITALS: BP 144/107; PULSE 93; RESP 16; TEMP 36.8; O2SAT 99
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
[2023-07-30 08:57] VITALS: BP 140/77; PULSE 88; RESP 16; TEMP 36.8; O2SAT 99
== END 2023-07-30 09:00 | disposition home or self-care (01) ==
PROVIDERS: Emergency Provider Student in an Organized Health Care Education/Training Program; PCP Nurse Practitioner Family
DX: M25.571 Pain in right ankle and joints of right foot (principal); M25.572 Pain in left ankle and joints of left foot
CPT/HCPCS: 96372; 97116; 97162; 99283; J1885

== ENCOUNTER 2023-08-03 21:26 | Outpatient (REF) | payer MEDICAID, SELFPAY ==
[2023-08-03 21:25] LABS: Abs Immature Grans 0.06 10^3/uL (0.0-0.06); Absolute Basophil Count 0.08 10^3/uL (0.0-0.2); Absolute Eosinophil Count 0.19 10^3/uL (0.0-0.7); Absolute Lymphocyte Count 1.23 10^3/uL (1.2-3.4); Absolute Monocyte Count 0.81 10^3/uL (0.1-0.8); Absolute Neutrophil Count 7.35 10^3/uL (1.2-6.7); Basophils % 0.8; HCT 43.4 % (40.0-50.0); HGB 15.1 g/dL (13.5-17.5); Immature Grans % 0.6; Lymphocytes % 12.7; MCH 29.8 pg (27.0-33.0); MCHC 34.8 % (32.0-36.0); MCV 86 fL (80-95); Monocytes % 8.3; Neutrophils % 75.6; RBC 5.06 10^6/uL (4.36-5.78); RDW 11.6 % (11.8-14.1); RDW-SD 36.1 fL; WBC 9.72 10^3/uL (4.4-10.8)
[2023-08-03 21:36] LABS: ALT 73 U/L (16-63); AST 37 U/L (15-37); Albumin 3.7 g/dL (3.4-5.0); Alkaline Phosphatase 103 U/L (46-116); BUN 8 mg/dL (7-18); Bilirubin, Total 0.4 mg/dL (0.2-1.0); CREATININE 0.8 mg/dL (0.70-1.30); Calcium 9.7 mg/dL (8.5-10.1); Chloride 103 mmol/L (98-107); Glucose 112 mg/dL (74-106); Potassium 4.3 mmol/L (3.5-5.1); Sodium 138 mmol/L (136-145); Total Protein 7.6 g/dL (6.4-8.2)
[2023-08-03 21:40] LABS: Diff Comment PLT Morph Reviewed; RBC Morphology Normal
[2023-08-05 10:48] LABS: Lyme Ab w Rflx to Lyme Confirm Negative (Negative)
[2023-08-06 17:26] LABS: Anaplasma phagocytophilum Negative (Negative); B. miyamotoi PCR Negative (Negative); Babesia divergens/MO-1 Negative (Negative); Babesia duncani Negative (Negative); Babesia microti Negative (Negative); Ehrlichia chaffeensis Negative (Negative); Ehrlichia ewingii/canis Negative (Negative); Ehrlichia muris eauclairensis Negative (Negative)
== END 2023-08-03 21:27 | disposition home or self-care (01) ==
LOC: LBN 21:26
PROVIDERS: PCP Nurse Practitioner Family; Visit Provider Nurse Practitioner Family
DX: M25.471 Effusion, right ankle (principal); M79.18 Myalgia, other site; M79.672 Pain in left foot; M79.671 Pain in right foot; M25.472 Effusion, left ankle
CPT/HCPCS: 80053; 87798; 84550; 85025; 86618

== ENCOUNTER → 2023-08-04 15:52 | Outpatient (CLI) | payer MEDICAID, SELFPAY ==
--- NOTE | 2023-08-04 08:11 | DI.US_ITS ---
Exam(s) US EXTREMITY VENOUS BI EXAM: US EXTREMITY VENOUS BI CLINICAL HISTORY: bilateral ankle, foot, calf swelling and pain, M79.661, M79.662, M79.673. TECHNIQUE: Bilateral lower extremity venous ultrasound performed using grayscale, color-flow, and sp ectral Doppler analysis. COMPARISON: No exams were available for comparison FINDINGS: The bilateral common femoral, femoral and popliteal veins demonstrate normal compressibility, augment ation, and color Doppler. The posterior tibial veins are patent. Mildly enlarged bilateral groin lym ph nodes are noted which are consistent with reactive lymph nodes. IMPRESSION: Right: Negative for DVT Left: Negative for DVT DATA REPOSITORY:
--- NOTE | 2023-08-04 14:30 | DI.RAD_ITS ---
Exam(s) XR FOOT LT COMPLETE XR ANKLE LT COMPLETE EXAM: XR ANKLE LT COMPLETE CLINICAL HISTORY: bilateral ankle, foot, calf swelling and pain M79.10 M25.476 M79.673 M79.66 TECHNIQUE: 2D digital imaging was performed. Three views of the ankle. Three views of foot. COMPARISON: CR XR FOOT LT COMPLETE from 08/04/2023 FINDINGS: BONES: No acute fracture is present. No bony destructive lesion is seen. JOINTS:The ankle mortise is normally aligned. No degenerative changes SOFT TISSUE: Normal. IMPRESSION: Unremarkable radiographs of the left ankle and foot. DATA REPOSITORY: RADIATION DOSE DELIVERED:
--- NOTE | 2023-08-04 14:30 | DI.RAD_ITS ---
Exam(s) XR ANKLE RT COMPLETE EXAM: XR ANKLE RT COMPLETE CLINICAL HISTORY: bilateral ankle, foot, calf swelling and pain M79.10 M25.476 M79.673. TECHNIQUE: 2D digital imaging was performed. Three views. COMPARISON: No exams were available for comparison FINDINGS: BONES: No acute fracture is present. No bony destructive lesion is seen. JOINTS: The ankle mortise is normally aligned. No significant degenerative changes. SOFT TISSUE: Swelling. No foreign body or gas collection. IMPRESSION: Soft tissue swelling. DATA REPOSITORY: RADIATION DOSE DELIVERED:
--- NOTE | 2023-08-04 14:30 | DI.RAD_ITS ---
Exam(s) XR FOOT RT COMPLETE EXAM: XR FOOT RT COMPLETE CLINICAL HISTORY: bilateral ankle, foot, calf swelling and painM79.10 M25.476 M79.673 M79.661. TECHNIQUE: 2D digital imaging was performed. Three views. COMPARISON: CR XR FOOT LT COMPLETE from 08/04/2023 FINDINGS: BONES: No acute fracture is present. No bony destructive lesion is seen. JOINTS: No dislocation present. SOFT TISSUE: Mild swelling more so around ankle. IMPRESSION: Mild soft tissue swelling. DATA REPOSITORY: RADIATION DOSE DELIVERED:
== END ==
PROVIDERS: PCP Nurse Practitioner Family; Visit Provider Nurse Practitioner Family
DX: M25.474 Effusion, right foot (principal); M25.572 Pain in left ankle and joints of left foot; M25.571 Pain in right ankle and joints of right foot
CPT/HCPCS: 73610; 73630; 93970

== ENCOUNTER 2023-08-19 04:19 | Outpatient (CLI) | payer MEDICAID, SELFPAY ==
[2023-08-19 10:25] LABS: HCT 42.6 % (40.0-50.0); HGB 14.6 g/dL (13.5-17.5); MCHC 34.3 % (32.0-36.0); MCV 85 fL (80-95); MPV 9.3 fL (8.0-11.0); Platelet Count 404 10^3/uL (130-400); RBC 5.03 10^6/uL (4.36-5.78); RDW 11.9 % (11.8-14.1); RDW-SD 35.8 fL
[2023-08-19 10:27] LABS: ESR 11 mm/hr (0-15)
[2023-08-19 11:16] LABS: C-Reactive Protein 1.69 mg/dL (0.0-0.3); Uric Acid 4.8 mg/dL (3.5-7.2)
[2023-08-19 20:01] LABS: Rheumatoid Factor <8.6 IU/mL (<12.0)
[2023-08-20 09:12] LABS: Cyclic Citrullinated Peptide <2.5 U/mL (<5.0)
[2023-08-20 14:58] LABS: ANA Interpretation Negative (Negative)
== END 2023-08-19 04:20 | disposition home or self-care (01) ==
LOC: LBO 04:20
PROVIDERS: PCP Nurse Practitioner Family; Visit Provider Podiatrist
DX: M25.571 Pain in right ankle and joints of right foot; M72.2 Plantar fascial fibromatosis; M76.61 Achilles tendinitis, right leg; M76.62 Achilles tendinitis, left leg; E79.0 Hyperuricemia without signs of inflammatory arthritis and tophaceous disease
CPT/HCPCS: 36415; 85027; 85652; 86200; 84550; 86038; 86140; 86431

== ENCOUNTER 2023-08-25 14:28 | Emergency (ER) | payer MEDICAID, SELFPAY ==
[2023-08-25] VITALS (40 sets, daily range): BP systolic 111–164; BP diastolic 59–106; PULSE 90–114; RESP 13–24; TEMP 36.4; O2SAT 95–99
--- NOTE | 2023-08-25 15:00 | DI.RAD_ITS ---
Exam(s) XR ANKLE LT COMPLETE EXAM: XR ANKLE LT COMPLETE CLINICAL HISTORY: ankle pain TECHNIQUE: 2D digital imaging was performed. Three views. COMPARISON: No exams were available for comparison FINDINGS: BONES: No acute fracture is present. No bony destructive lesion is seen. JOINTS:The ankle mortise is normally aligned. SOFT TISSUE: Normal. IMPRESSION: Unremarkable radiographs of the left ankle. DATA REPOSITORY: RADIATION DOSE DELIVERED:
--- NOTE | 2023-08-25 15:00 | DI.RAD_ITS ---
Exam(s) XR ANKLE RT COMPLETE EXAM: XR ANKLE RT COMPLETE CLINICAL HISTORY: ankle pain. TECHNIQUE: 2D digital imaging was performed. Three views. COMPARISON: CR XR ANKLE RT COMPLETE from 08/04/2023 FINDINGS: BONES: No acute fracture is present. No bony destructive lesion is seen. JOINTS: The ankle mortise is normally aligned. SOFT TISSUE: Normal. IMPRESSION: Unremarkable radiographs of the right ankle. DATA REPOSITORY: RADIATION DOSE DELIVERED:
[2023-08-25 15:10] LABS: Abs Immature Grans 0.05 10^3/uL (0.0-0.06); Absolute Basophil Count 0.05 10^3/uL (0.0-0.2); Absolute Eosinophil Count 0.21 10^3/uL (0.0-0.7); Absolute Lymphocyte Count 1.88 10^3/uL (1.2-3.4); Basophils % 0.4; Eosinophils % 1.8; HCT 40.7 % (40.0-50.0); HGB 13.8 g/dL (13.5-17.5); Immature Grans % 0.4; Lymphocytes % 16.5; MCH 28.5 pg (27.0-33.0); MCHC 33.9 % (32.0-36.0); MCV 84 fL (80-95); MPV 8.9 fL (8.0-11.0); Monocytes % 9.6; Neutrophils % 71.3; Platelet Count 336 10^3/uL (130-400); RBC 4.84 10^6/uL (4.36-5.78); RDW 12.1 % (11.8-14.1); RDW-SD 36.5 fL; WBC 11.42 10^3/uL (4.4-10.8)
[2023-08-25 15:12] LABS: ESR 12 mm/hr (0-15)
[2023-08-25 15:13] LABS: Absolute Neutrophil Count 8.14 10^3/uL (1.2-6.7)
[2023-08-25 15:27] LABS: ALT 30 U/L (16-63); AST 12 U/L (15-37); Albumin 2.6 g/dL (3.4-5.0); Alkaline Phosphatase 58 U/L (46-116); Anion Gap 9.1 mmol/L (3-11); BUN 13 mg/dL (7-18); Bilirubin, Total 0.2 mg/dL (0.2-1.0); C-Reactive Protein 0.76 mg/dL (0.0-0.3); CO2 22.9 mmol/L (21.0-32.0); CREATININE 0.7 mg/dL (0.70-1.30); Calcium 7.1 mg/dL (8.5-10.1); Chloride 109 mmol/L (98-107); Estimated GFR 126.33 (mL/min/1.73m2); Glucose 87 mg/dL (74-106); Sodium 141 mmol/L (136-145); Total Protein 5.3 g/dL (6.4-8.2)
[2023-08-25 15:30] LABS: Potassium 2.7 mmol/L (3.5-5.1)
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
[2023-08-25] MEDS: Acetaminophen 500 MG TAB 1000 MG PO (15:50)
[2023-08-25] MEDS: Potassium Chloride Liquid 20 MEQ PKT 40 MEQ PO (15:57)
[2023-08-25 16:06] LABS: Crystals (BF) No Crystals seen
[2023-08-25 16:07] LABS: Crystals (BF) No Crystals seen
[2023-08-25] MEDS: PIPERACILLIN/TAZO 4.5 GM in Normal Saline 100 ML IVPB (16:24)
[2023-08-25] MEDS: VANCOMYCIN/WATER (PEG) 1.5 GM/300 ML BAG IVPB (17:06)
[2023-08-25] MEDS: diphenhydrAMINE 50 MG/ML VIAL 25 MG IVP (18:29)
[2023-08-25] MEDS: Normal Saline 1,000 ML 1000 ML IV (18:43)
[2023-08-25] MEDS: Ondansetron 4 MG/2 ML VIAL IVP (18:43)
--- NOTE | 2023-08-25 19:23 | NUR.NOTE ---
PT is feeling better and is ready for DC Nursing Note:
--- NOTE | 2023-08-25 19:34 | W.ED.EVENT ---
Date of service: 08/25/23 Time of Service: 18:00
--- NOTE | 2023-08-25 19:36 | W.EDPROG ---
Date of service: 08/25/23 Time of Service: 18:30 Medical Decision Making Patient was pending discharge once antibiotics completed. He had received Zosyn without incident. In the process of the vancomycin infusion he began to have some pruritus without any other symptomatology and specifically no hives, rash, erythema, shortness of breath. Vanco had been stopped by nursing. Patient given 25 mg IV Benadryl and vancomycin restarted. Patient subsequently developed lightheadedness/dizziness, nausea, tachycardia and hypertension. Vancomycin was discontinued completely. Patient received IV Zofran and IV fluids. Within an hour he felt back to baseline and normal. Adverse reaction to vancomycin entered into patient chart by me. Otherwise discharged home per previous discharge instructions. Exam Narrative Exam Narrative: Const: WDWN male in NAD. HEENT: NC/AT. Normal facial exam. Eyes: Normal conjunctiva and sclera. Neck: Supple. Trachea midline. Lungs: Normal respiratory effort. Lungs are clear. Cor: RRR without murmur/gallop. Good radial pulses. Neuro: A+O x 3. Normal speech, mentation, gait. Cranial nerves II - XII grossly intact. No gross motor or sensory deficit. Ext: No C/C/E. Skin: Warm and dry without rash. Discharge Plan Disposition Patient Disposition: Home Condition: Good Discharge Details Clinical Impression: Chronic ankle pain, bilateral Primary Care Provider: Gregorio Major ED Provider: Gilbert Witt Home Meds and New Rx's Prescriptions: No Action lisinopril 30 mg tablet 30 mg PO DAILY Qty: 90 4RF betamethasone acet,sod phos 6 mg/mL suspension 0.5 ml Tendon Sheath Inj. ONCE Qty: 0.5 0RF Patient Comments: PT does not recognize the name. colchicine 0.5 mg tablet 0.5 mg PO DAILY Qty: 10 0RF chlorthalidone 25 mg tablet 25 mg PO DAILY Qty: 90 3RF gabapentin 100 mg capsule 100 mg PO TID Qty: 90 1RF metoprolol succinate 200 mg tablet extended release 24 hr 200 mg PO DAILY Qty: 90 3RF doxycycline hyclate 100 mg capsule 100 mg PO BID Qty: 28 0RF Discharge Instructions Instructions: Leg Pain (ED) Additional Instructions: please follow up with podiatry. they will monitor cultures
== END 2023-08-25 19:29 | disposition home or self-care (01) ==
PROVIDERS: Emergency Provider Emergency Medicine; PCP Nurse Practitioner Family
DX: M25.572 Pain in left ankle and joints of left foot (principal); M25.571 Pain in right ankle and joints of right foot; L29.9 Pruritus, unspecified; T36.8X5A Adverse effect of other systemic antibiotics, initial encounter; F17.290 Nicotine dependence, other tobacco product, uncomplicated
CPT/HCPCS: 123; 36415; 80053; 85652; 87040; 96361; 96365; 96368; 96375; 99283; 00123; 73610; 85025; 86140; 87070; 87205; 89051; 89060; J1200; J2405; J2543

== ENCOUNTER 2023-08-25 15:24 | Outpatient (CLI) | payer MEDICAID, SELFPAY ==
[2023-08-25 13:40] LABS: Abs Immature Grans 0.07 10^3/uL (0.0-0.06); Absolute Basophil Count 0.05 10^3/uL (0.0-0.2); Absolute Eosinophil Count 0.25 10^3/uL (0.0-0.7); Absolute Lymphocyte Count 2.06 10^3/uL (1.2-3.4); Absolute Monocyte Count 0.85 10^3/uL (0.1-0.8); Absolute Neutrophil Count 8.68 10^3/uL (1.2-6.7); Basophils % 0.4; Eosinophils % 2.1; HCT 44.3 % (40.0-50.0); HGB 14.9 g/dL (13.5-17.5); Immature Grans % 0.6; Lymphocytes % 17.2; MCH 28.7 pg (27.0-33.0); MCHC 33.6 % (32.0-36.0); MCV 85 fL (80-95); Monocytes % 7.1; Neutrophils % 72.6; Platelet Count 379 10^3/uL (130-400); RDW 12.1 % (11.8-14.1); WBC 11.96 10^3/uL (4.4-10.8)
[2023-08-25 14:19] LABS: C-Reactive Protein 1.01 mg/dL (0.0-0.3)
== END 2023-08-25 15:25 | disposition home or self-care (01) ==
LOC: LBO 15:25
PROVIDERS: PCP Nurse Practitioner Family; Visit Provider Podiatrist
DX: E79.0 Hyperuricemia without signs of inflammatory arthritis and tophaceous disease (principal); M25.572 Pain in left ankle and joints of left foot; M25.571 Pain in right ankle and joints of right foot
CPT/HCPCS: 36415; 85025; 86140

== ENCOUNTER → 2023-09-03 02:43 | Outpatient (CLI) | payer MEDICAID, SELFPAY ==
--- NOTE | 2023-09-03 07:45 | DI.MRI_ITS ---
Exam(s) MR LOWER JOINT RT WO EXAM: MR LOWER JOINT RT WO CLINICAL HISTORY: joint pain, m25.50,plantar fascitis,achilles tendonitis,bilat,bilat tendon TECHNIQUE: Multiplanar multisequence MRI was performed without intravenous contrast. COMPARISON: CR XR ANKLE RT COMPLETE from 08/25/2023 FINDINGS: BONES/JOINTS: No fracture or contusion pattern. No bone lesions identified. The talar dome is smooth. The ankle mortise is maintained. There is an os trigonum. There is no abnormal signal within the o ssicle or between the ossicle and talus. There is a small amount of fluid seen posterior to the talo navicular joint. No discrete ganglion. LIGAMENTS: The tibiofibular and calcaneofibular ligaments are intact. The talofibular ligaments are i ntact. There is some fluid within and posterior to the posterior talar fibular ligament. The deltoi d ligament is intact. The syndesmosis is unremarkable. Sinus tarsi is normal. MUSCULOTENDINOUS STRUCTURES: Achilles tendon: Unremarkable. Plantar fascia: Unremarkable. Anterior Extensor tendons: Unremarkable. Posterior Tibialis: Unremarkable. Flexor Digitorum longus: Unremarkable. Flexor Hallucis longus: Unremarkable. Peroneus longus: Unremarkable. Peroneus brevis:Unremarkable. SOFT TISSUES: Unremarkable. OTHER FINDINGS: None. IMPRESSION: Small amount of fluid within and posterior to the posterior talofibular ligament. No evidence of tea r. Plantar fashion Achilles tendon appear normal. DATA REPOSITORY:
--- NOTE | 2023-09-03 07:45 | DI.MRI_ITS ---
Exam(s) MR LOWER JOINT LT WO EXAM: MR LOWER JOINT LT WO CLINICAL HISTORY: Plantar and posterior heel and joint pain,m72.2 TECHNIQUE: Multiplanar multisequence MRI was performed without intravenous contrast. COMPARISON: CR XR ANKLE LT COMPLETE from 08/25/2023 MR MR LOWER JOINT RT WO from 09/03/2023 FINDINGS: BONES/JOINTS: No fracture or contusion pattern. No bone lesions identified. The talar dome is smooth. The ankle mortise is maintained. No joint effusion is present. Degenerative changes noted dorsal t alonavicular joint. Some adjacent edema. LIGAMENTS: The tibiofibular and calcaneofibular ligaments are intact. The talofibular ligaments are i ntact. The deltoid ligament is intact. The syndesmosis is unremarkable. Sinus tarsi is normal. MUSCULOTENDINOUS STRUCTURES: Achilles tendon: Unremarkable. Plantar fascia: Unremarkable. Anterior Extensor tendons: Unremarkable. Posterior Tibialis: Unremarkable. Flexor Digitorum longus: Unremarkable. Flexor Hallucis longus: Unremarkable. Peroneus longus: Unremarkable. Peroneus brevis:Unremarkable. SOFT TISSUES: Multiloculated ganglion cyst seen posterior to the and talofibular ligament measuring r oughly 23 x 10 x 15 millimeters. IMPRESSION: Small posterior ganglion cyst. DATA REPOSITORY:
== END ==
PROVIDERS: PCP Nurse Practitioner Family; Visit Provider Podiatrist
DX: M72.2 Plantar fascial fibromatosis (principal); M25.571 Pain in right ankle and joints of right foot; M67.01 Short Achilles tendon (acquired), right ankle; M67.02 Short Achilles tendon (acquired), left ankle; M76.61 Achilles tendinitis, right leg; M76.62 Achilles tendinitis, left leg
CPT/HCPCS: 73721

== ENCOUNTER 2023-09-06 21:03 | Outpatient (CLI) | payer MEDICAID, SELFPAY ==
[2023-09-06 12:38] LABS: Abs Immature Grans 0.04 10^3/uL (0.0-0.06); Absolute Basophil Count 0.07 10^3/uL (0.0-0.2); Absolute Lymphocyte Count 1.51 10^3/uL (1.2-3.4); Absolute Monocyte Count 1.03 10^3/uL (0.1-0.8); Basophils % 0.6; Eosinophils % 1.9; HCT 40.5 % (40.0-50.0); HGB 14.1 g/dL (13.5-17.5); Immature Grans % 0.3; Lymphocytes % 12.7; MCH 28.7 pg (27.0-33.0); MCHC 34.8 % (32.0-36.0); MCV 83 fL (80-95); MPV 9.3 fL (8.0-11.0); Monocytes % 8.7; Neutrophils % 75.8; Platelet Count 346 10^3/uL (130-400); RBC 4.91 10^6/uL (4.36-5.78); RDW 12.1 % (11.8-14.1); RDW-SD 36.6 fL; WBC 11.89 10^3/uL (4.4-10.8)
[2023-09-06 12:40] LABS: Absolute Eosinophil Count 0.23 10^3/uL (0.0-0.7); Absolute Neutrophil Count 9.01 10^3/uL (1.2-6.7)
[2023-09-06 12:59] LABS: ESR 11 mm/hr (0-15)
[2023-09-06 13:01] LABS: C-Reactive Protein 0.39 mg/dL (0.0-0.3); Uric Acid 7.5 mg/dL (3.5-7.2)
== END 2023-09-06 21:04 | disposition home or self-care (01) ==
LOC: LBO 21:04
PROVIDERS: PCP Nurse Practitioner Family; Visit Provider Podiatrist
DX: G89.29 Other chronic pain (principal); M25.571 Pain in right ankle and joints of right foot; M25.572 Pain in left ankle and joints of left foot; E79.0 Hyperuricemia without signs of inflammatory arthritis and tophaceous disease
CPT/HCPCS: 36415; 85652; 84550; 85025; 86140

== ENCOUNTER 2024-01-28 19:14 | Emergency (ER) | payer MEDICAID, SELFPAY ==
[2024-01-28] VITALS (36 sets, daily range): BP systolic 77–135; BP diastolic 50–105; PULSE 98–119; RESP 2–23; TEMP 36.1–37.3; O2SAT 90–99
--- NOTE | 2024-01-28 19:30 | DI.RAD_ITS ---
Exam(s) XR CHEST 2V PA LATERAL EXAM: XR CHEST 2V PA LATERAL CLINICAL HISTORY: shortness of breath, cough. TECHNIQUE: 2D digital imaging was performed. COMPARISON: CR,XR XR CHEST 2V PA LATERAL from 08/02/2022 FINDINGS: 2 views: Heart size is normal. The mediastinum is not widened. Lungs are clear. No infiltrates nor pleural effusions. IMPRESSION: No acute pulmonary findings.No significant change compared to chest x-ray of 08/02/2022. DATA REPOSITORY: RADIATION DOSE DELIVERED:
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
[2024-01-28 19:49] LABS: Abs Immature Grans 0.01 10^3/uL (0.0-0.06); Absolute Basophil Count 0.01 10^3/uL (0.0-0.2); Absolute Eosinophil Count 0.01 10^3/uL (0.0-0.7); Absolute Lymphocyte Count 0.87 10^3/uL (1.2-3.4); Absolute Monocyte Count 0.45 10^3/uL (0.1-0.8); Absolute Neutrophil Count 2.48 10^3/uL (1.2-6.7); Basophils % 0.3; Eosinophils % 0.3; HCT 40.5 % (40.0-50.0); HGB 14.5 g/dL (13.5-17.5); Immature Grans % 0.3; Lymphocytes % 22.7; MCH 30.3 pg (27.0-33.0); MCHC 35.8 % (32.0-36.0); MCV 85 fL (80-95); MPV 9.8 fL (8.0-11.0); Monocytes % 11.7; Neutrophils % 64.7; Platelet Count 211 10^3/uL (130-400); RBC 4.79 10^6/uL (4.36-5.78); RDW 12.7 % (11.8-14.1); RDW-SD 39.3 fL; WBC 3.84 10^3/uL (4.4-10.8)
[2024-01-28] MEDS: Normal Saline 1,000 ML 1000 ML IV ×2 (19:53→21:20)
[2024-01-28] MEDS: methylPREDNISolone SUCC 125 MG VIAL IVP (19:53)
[2024-01-28] MEDS: ACETAMINOPHEN 1,000 MG/100 ML BTL 400 MG IVPB (19:54)
[2024-01-28] MEDS: Albuterol/Ipratropium 3 ML UPD VIAL UPD (19:55)
[2024-01-28] MEDS: Ondansetron 4 MG/2 ML VIAL IVP (20:07)
--- NOTE | 2024-01-28 20:15 | RT.EKG_ITS ---
APPROVED REPORT Exam: Resting ECG Reason for Exam: hypokalemia Patient Location: E HR:108 bpm ECG Measurements Heart Rate 108 AXIS IN 157 P 38 QRSd 83 QRS -10 QT 311 T 191 QTc 417 Conclusion Sinus tachycardia...rate> 99 Nonspecific repol abnormality, diffuse leads...ST dep, T flat/neg, ant/lat/inf Narrow complex normal sinus rhythm at a rate of 108. Left axis deviation LVH based on voltage criter ia in aVL. ST segment flattening V4 through V6. T wave flattening left lateral chest wall leads. P R and QTc within normal limits. Compared to prior dated 2 years ago sinus tachycardia is persistent. LVH is new. ST segment depressions left chest wall leads new.
[2024-01-28 20:16] LABS: ALT 102 U/L (16-63); AST 113 U/L (15-37); Albumin 3.8 g/dL (3.4-5.0); Alkaline Phosphatase 57 U/L (46-116); Anion Gap 13.3 mmol/L (3-11); BUN 16 mg/dL (7-18); Bilirubin, Total 0.6 mg/dL (0.2-1.0); CO2 27.7 mmol/L (21.0-32.0); CREATININE 1.5 mg/dL (0.70-1.30); Calcium 7.9 mg/dL (8.5-10.1); Chloride 92 mmol/L (98-107); Estimated GFR 63.44 (mL/min/1.73m2); Glucose 131 mg/dL (74-106); Sodium 133 mmol/L (136-145); Total Protein 7.9 g/dL (6.4-8.2)
[2024-01-28 20:18] LABS: Potassium 2.4 mmol/L (3.5-5.1)
[2024-01-28] MEDS: Potassium Chloride 20 MEQ TABCR 40 MEQ PO ×2 (20:26→23:15)
[2024-01-28] MEDS: POTASSIUM CHLORIDE 20 MEQ/100 ML BAG 50 MEQ IVPB (20:26)
[2024-01-28 20:38] LABS: Magnesium 1.7 mg/dL (1.8-2.4)
[2024-01-28] MEDS: Magnesium Oxide 400 MG TAB 800 MG PO (20:54)
[2024-01-28] MEDS: Albuterol 2.5 MG/3 ML INH SOLN VIAL UPD (20:54)
--- NOTE | 2024-01-28 21:06 | DI.VRAD_ITS ---
PROCEDURE INFORMATION: Exam: XR Chest Exam date and time: 01/28/2024 8:11 PM Age: 33 years old Clinical indication: Cough and shortness of breath; Smoker's cough; Patient HX: Cough, SOB TECHNIQUE: Imaging protocol: Radiologic exam of the chest. Views: 2 views. COMPARISON: CR XR CHEST 2V PA LATERAL 08/02/2022 6:58 AM FINDINGS: Lungs: Unremarkable. No consolidation. Pleural spaces: Unremarkable. No pleural effusion. No pneumothorax. Heart/Mediastinum: Unremarkable. No cardiomegaly. Bones/joints: Unremarkable. IMPRESSION: No acute findings. Dictated and Authenticated by: Duarte Garcia MD. Ordering:ORLIN Begum MD
[2024-01-28 22:41] LABS: Anion Gap 11.3 mmol/L (3-11); BUN 15 mg/dL (7-18); CO2 25.7 mmol/L (21.0-32.0); CREATININE 1.3 mg/dL (0.70-1.30); Calcium 6.9 mg/dL (8.5-10.1); Chloride 97 mmol/L (98-107); Estimated GFR 75.32 (mL/min/1.73m2); Glucose 176 mg/dL (74-106); Sodium 134 mmol/L (136-145)
[2024-01-28 22:45] LABS: Potassium 2.6 mmol/L (3.5-5.1)
--- NOTE | 2024-01-28 23:06 | NUR.NOTE ---
[facility] potassium recheck and positive flu b recheck.Nursing Note:
[2024-01-28] MEDS: Prochlorperazine 10 MG TAB PO (23:15)
== END 2024-01-28 23:18 | disposition home or self-care (01) ==
PROVIDERS: Emergency Provider Physician Assistant; PCP Nurse Practitioner Family
DX: E86.0 Dehydration (principal); J40 Bronchitis, not specified as acute or chronic; J10.1 Influenza due to other identified influenza virus with other respiratory manifestations; E87.6 Hypokalemia; E83.42 Hypomagnesemia
CPT/HCPCS: 80048; 80053; 93005; 94640; 96365; 96366; 96375; 99285; 71046; 83735; 85025; 93010; 99284; J0131; J2405; J2919; J3480; J7613; J7620

== ENCOUNTER 2024-02-25 03:53 | Emergency (ER) | payer MEDICAID, SELFPAY ==
[2024-02-25 03:59] VITALS: BP 197/127; PULSE 118; RESP 18; TEMP 36.6; O2SAT 96
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
[2024-02-25] MEDS: Lidocaine 5% Patch 2 PATCH TP (04:33)
[2024-02-25] MEDS: Acetaminophen 500 MG TAB 1000 MG PO (04:33)
[2024-02-25] MEDS: Cyclobenzaprine 10 MG TAB 5 MG PO (04:34)
[2024-02-25] MEDS: Ketorolac 15 MG/ML VIAL IM (04:35)
[2024-02-25 04:52] LABS: Bilirubin Negative (Negative); Blood Negative (Negative); Clarity Clear (Clear); Glucose Negative (Negative); Ketones Negative (Negative); Leukocyte Esterase Negative (Negative); Nitrite Negative (Negative); Urobilinogen 0.2 mg/dL (Up to 0.2); pH 8.5 (5-8)
[2024-02-25 05:06] VITALS: BP 158/119; PULSE 101; RESP 16; O2SAT 95
== END 2024-02-25 05:59 | disposition home or self-care (01) ==
LOC: ER 05:21
PROVIDERS: Emergency Provider Student in an Organized Health Care Education/Training Program; PCP Nurse Practitioner Family
DX: M54.50 Low back pain, unspecified (principal); I10 Essential (primary) hypertension; F17.220 Nicotine dependence, chewing tobacco, uncomplicated
CPT/HCPCS: 96374; 99283; 81003; J1885

== ENCOUNTER 2024-06-14 17:14 | Emergency (ER) | payer MEDICAID, SELFPAY ==
[2024-06-14 17:27] VITALS: BP 133/78; PULSE 105; RESP 18; TEMP 36.7; O2SAT 97
== END 2024-06-14 20:43 | disposition left against medical advice (07) ==
LOC: ER 17:32
PROVIDERS: PCP Nurse Practitioner Family
DX: Z53.21 Procedure and treatment not carried out due to patient leaving prior to being seen by health care provider (principal)

== ENCOUNTER 2024-06-15 09:15 | Emergency (ER) | payer MEDICAID, SELFPAY ==
[2024-06-15 09:20] VITALS: BP 147/102; PULSE 117; RESP 10; TEMP 36.8; O2SAT 97
--- NOTE | 2024-06-15 10:15 | DI.RAD_ITS ---
Exam(s) XR ANKLE RT COMPLETE XR ANKLE LT COMPLETE EXAM: XR ANKLE RT COMPLETE CLINICAL HISTORY: bilateral ankle pain. TECHNIQUE: 2D digital imaging was performed. Three views of both ankles. COMPARISON: No exams were available for comparison FINDINGS: BONES: No acute fracture is present. No bony destructive lesion is seen. JOINTS: The ankle mortise is normally aligned. Mild spurring at the malleoli. Tibiotalar joint spa ce is maintained. SOFT TISSUE: Normal. IMPRESSION: No acute abnormality. DATA REPOSITORY: RADIATION DOSE DELIVERED:
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
[2024-06-15 10:39] LABS: Abs Immature Grans 0.07 10^3/uL (0.0-0.06); Absolute Basophil Count 0.08 10^3/uL (0.0-0.2); Absolute Eosinophil Count 0.37 10^3/uL (0.0-0.7); Absolute Lymphocyte Count 1.31 10^3/uL (1.2-3.4); Absolute Monocyte Count 0.79 10^3/uL (0.1-0.8); Basophils % 0.7 %; Eosinophils % 3.3 %; HCT 41.2 % (40.0-50.0); HGB 14.3 g/dL (13.5-17.5); Immature Grans % 0.6 %; Lymphocytes % 11.8 %; MCH 29.6 pg (27.0-33.0); MCHC 34.7 % (32.0-36.0); MCV 85 fL (80-95); MPV 9.2 fL (8.0-11.0); Monocytes % 7.1 %; Neutrophils % 76.5 %; Platelet Count 375 10^3/uL (130-400); RBC 4.83 10^6/uL (4.36-5.78); RDW 12.4 % (11.8-14.1); RDW-SD 38.1 fL; WBC 11.08 10^3/uL (4.4-10.8)
[2024-06-15 10:42] LABS: Absolute Neutrophil Count 8.48 10^3/uL (1.2-6.7); ESR 9 mm/hr (0-15)
[2024-06-15 10:49] LABS: C-Reactive Protein 0.59 mg/dL (<or=0.5); Uric Acid 12.6 mg/dL (3.5-7.2)
[2024-06-15 10:51] LABS: ALT 64 U/L (16-63); AST 45 U/L (15-37); Albumin 3.9 g/dL (3.4-5.0); Alkaline Phosphatase 107 U/L (46-116); Anion Gap 12.6 mmol/L (3-11); BUN 12 mg/dL (7-18); Bilirubin, Total 0.54 mg/dL (0.2-1.0); CO2 27.4 mmol/L (21.0-32.0); Calcium 9.7 mg/dL (8.5-10.1); Chloride 99 mmol/L (98-107); Estimated GFR 103.19 (mL/min/1.73m2); Glucose 116 mg/dL (74-106); Potassium 3.6 mmol/L (3.5-5.1); Sodium 139 mmol/L (136-145); Total Protein 8.3 g/dL (6.4-8.2)
[2024-06-16 09:40] LABS: Lyme Ab w Rflx to Lyme Confirm Negative (Negative)
[2024-06-18 15:41] LABS: Anaplasma phagocytophilum Negative (Negative); B. miyamotoi PCR Negative (Negative); Babesia divergens/MO-1 Negative (Negative); Babesia duncani Negative (Negative); Babesia microti Negative (Negative); Ehrlichia chaffeensis Negative (Negative); Ehrlichia ewingii/canis Negative (Negative); Ehrlichia muris eauclairensis Negative (Negative)
== END 2024-06-15 11:25 | disposition home or self-care (01) ==
PROVIDERS: Emergency Provider Physician Assistant; PCP Nurse Practitioner Family
DX: M10.9 Gout, unspecified (principal); R21 Rash and other nonspecific skin eruption; L40.50 Arthropathic psoriasis, unspecified; I10 Essential (primary) hypertension; E78.1 Pure hyperglyceridemia
CPT/HCPCS: 80053; 85652; 87798; 99284; 73610; 84550; 85025; 86140; 86618

== ENCOUNTER 2024-08-19 08:51 | Emergency (ER) | payer MEDICAID, SELFPAY ==
[2024-08-19 08:55] VITALS: BP 134/92; PULSE 102; RESP 18; TEMP 36.5; O2SAT 97
[2024-08-19 08:58] VITALS: BP 134/92; PULSE 102; RESP 18; TEMP 36.5; O2SAT 97
--- NOTE | 2024-08-19 09:00 | DI.RAD_ITS ---
Exam(s) XR HAND RT COMPLETE EXAM: XR HAND RT COMPLETE CLINICAL HISTORY: hand infection. TECHNIQUE: 2D digital imaging was performed. COMPARISON: No exams were available for comparison FINDINGS: 3 views There is diffuse soft tissue swelling. No gas in soft tissues. No radiopaque foreign bodies. There are no acute fractures evident. There is an independent bone density adjacent to the medial as pect of the base of the 5th metacarpal, this measuring 6 by 4 mm but does not have the appearance of an acute fracture fragment. Bone density is normal. There are no osseous lesions nor erosions. No obvious evidence of osteomyel itis. There is sclerosis in the distal phalanx of the 4th-ring finger. This has appearance of benign lesio ns such as bone island. IMPRESSION: Soft tissue swelling. No soft tissue gas. No radiopaque foreign body. Osseous findings as above but no acute fractures. No evidence of osteomyelitis. DATA REPOSITORY: RADIATION DOSE DELIVERED:
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
[2024-08-19 10:38] LABS: ESR 17 mm/hr (0-15)
[2024-08-19 10:40] LABS: Abs Immature Grans 0.04 10^3/uL (0.0-0.06); Absolute Basophil Count 0.05 10^3/uL (0.0-0.2); Absolute Eosinophil Count 0.18 10^3/uL (0.0-0.7); Absolute Lymphocyte Count 1.02 10^3/uL (1.2-3.4); Absolute Monocyte Count 0.83 10^3/uL (0.1-0.8); Absolute Neutrophil Count 7.29 10^3/uL (1.2-6.7); Basophils % 0.5 %; Eosinophils % 1.9 %; HCT 37.5 % (40.0-50.0); HGB 12.6 g/dL (13.5-17.5); Immature Grans % 0.4 %; Lymphocytes % 10.8 %; MCH 28.9 pg (27.0-33.0); MCHC 33.6 % (32.0-36.0); MCV 86 fL (80-95); MPV 9.4 fL (8.0-11.0); Monocytes % 8.8 %; Neutrophils % 77.6 %; Platelet Count 346 10^3/uL (130-400); RBC 4.36 10^6/uL (4.36-5.78); RDW 12.4 % (11.8-14.1); RDW-SD 38.8 fL; WBC 9.41 10^3/uL (4.4-10.8)
[2024-08-19] MEDS: cefTRIAXone 2 GM/50 ML BAG IVPB (10:45)
[2024-08-19 10:49] LABS: INR 1.1 (0.9-1.1); Prothrombin Time 10.7 sec (9.1-11.1)
[2024-08-19 10:54] LABS: ALT 30 U/L (16-63); AST 24 U/L (15-37); Albumin 3.2 g/dL (3.4-5.0); Alkaline Phosphatase 87 U/L (46-116); Anion Gap 9.2 mmol/L (3-11); BUN 7 mg/dL (7-18); Bilirubin, Total 0.47 mg/dL (0.2-1.0); C-Reactive Protein 4.32 mg/dL (<or=0.5); CO2 27.8 mmol/L (21.0-32.0); CREATININE 0.9 mg/dL (0.70-1.30); Chloride 106 mmol/L (98-107); Estimated GFR 116.37 (mL/min/1.73m2); Glucose 110 mg/dL (74-106); Potassium 3.1 mmol/L (3.5-5.1); Sodium 143 mmol/L (136-145); Total Protein 7.4 g/dL (6.4-8.2)
--- NOTE | 2024-08-19 11:02 | DI.VRAD_ITS ---
PROCEDURE INFORMATION: Exam: XR Right Hand Exam date and time: 08/19/2024 10:37 AM Age: 34 years old Clinical indication: Swelling; Right; Patient HX: Hand infection TECHNIQUE: Imaging protocol: Radiologic exam of the right hand. Views: 3 or more views. COMPARISON: No relevant prior studies available. FINDINGS: Bones/joints: No acute fracture or dislocation. No bony erosion. Increased sclerosis of the 4th digit distal phalanx. Joint spaces maintained. Soft tissues: Diffuse hand swelling. No soft tissue gas. IMPRESSION: 1. Diffuse and swelling with no soft tissue gas. 2. Increased sclerosis of the 4th digit distal phalanx. Finding is nonspecific, though may represent a bone island. Dictated and Authenticated by: Garry Guzmán MD. Ordering:GAVINO Cleaning MD
[2024-08-19 11:12] LABS: Procalcitonin < 0.1 ng/mL
[2024-08-19] MEDS: VANCOMYCIN/WATER (PEG) 2 GM/400 ML BAG IVPB (11:16)
[2024-08-19] MEDS: Normal Saline Flush 10 ML SYR IVP (11:17)
[2024-08-19] MEDS: Potassium Chloride Liquid 20 MEQ PKT PO (11:20)
[2024-08-19 12:03] VITALS: BP 156/121; PULSE 91; RESP 18; O2SAT 100
[2024-08-19] MEDS: Acetaminophen 500 MG TAB 1000 MG PO (12:05)
[2024-08-19] MEDS: Ibuprofen 600 MG TAB PO (12:06)
[2024-08-19 12:30] VITALS: BP 156/121; PULSE 91; RESP 18; TEMP 36.8; O2SAT 100
== END 2024-08-19 12:27 | disposition short-term general hospital (02) ==
PROVIDERS: Emergency Provider Emergency Medicine; PCP Nurse Practitioner Family
DX: L03.113 Cellulitis of right upper limb (principal); E87.6 Hypokalemia
CPT/HCPCS: 36415; 80053; 84145; 85652; 87040; 90471; 90715; 96365; 96366; 96367; 99285; 73130; 85025; 85610; 86140; J0696; J3372

== ENCOUNTER 2024-09-16 13:43 | Outpatient (CLI) | payer MEDICAID, SELFPAY ==
--- NOTE | 2024-09-16 13:45 | DI.RAD_ITS ---
Exam(s) XR FOOT RT COMPLETE EXAM: XR FOOT RT COMPLETE CLINICAL HISTORY: evaluate pathology. TECHNIQUE: 2D digital imaging was performed. COMPARISON: CR XR FOOT RT COMPLETE from 08/04/2023 FINDINGS: 3 views There is some soft tissue swelling of the dorsal aspect of the foot. No radiopaque foreign bodies. No evidence of fracture or diastasis of the Lisfranc joint. Bone density is normal. No osseous lesi ons nor erosions. Great toe metatarsophalangeal joint appears unremarkable as do the other MTP joint s and all of the TMT joint. No evidence of pes planus. No inferior calcaneal spur. No enthesophyte s. IMPRESSION: Dorsal soft tissue swelling in the foot but no significant osseous findings DATA REPOSITORY: RADIATION DOSE DELIVERED:
--- NOTE | 2024-09-16 13:45 | DI.RAD_ITS ---
Exam(s) XR ARTHRITIS SERIES EXAM: XR ARTHRITIS SERIES CLINICAL HISTORY: evaluate pathology. TECHNIQUE: 2D digital imaging was performed. COMPARISON: No exams were available for comparison FINDINGS: Two views both hands (PA and [place] views). No evidence of fracture nor dislocation in either hand. No abnormal soft tissue calcifications evide nt. No lytic osseous lesions. There is a nonexpansile sclerotic bone lesion in the distal phalanx of the 4th-ring finger of the rig ht hand. IMPRESSION: No fractures nor dislocation no erosions nor soft tissue calcifications. Benign-appearing sclerotic non expansile bone lesion occupying significant part of the distal phalanx of the 4th-ring finger of the right hand DATA REPOSITORY: RADIATION DOSE DELIVERED:
--- NOTE | 2024-09-16 13:45 | DI.RAD_ITS ---
Exam(s) XR ANKLE RT COMPLETE EXAM: XR ANKLE RT COMPLETE CLINICAL HISTORY: evluate pathology. TECHNIQUE: 2D digital imaging was performed. COMPARISON: CR XR ANKLE RT COMPLETE from 06/15/2024 FINDINGS: 3 views There is soft tissue swelling both sides of the ankle. No evidence of fracture or nor widening the a nkle mortise. Talar dome unremarkable. Bone density normal. No osseous lesions. No osseous tarsal coalition. IMPRESSION: Soft tissue swelling but no acute osseous findings in the ankle. DATA REPOSITORY: RADIATION DOSE DELIVERED:
--- NOTE | 2024-09-16 14:28 | DI.VRAD_ITS ---
PROCEDURE INFORMATION: Exam: XR Right Wrist Exam date and time: 09/16/2024 1:57 PM Age: 34 years old Clinical indication: Pain; Hand; Left; Patient HX: Arthritis? ; Additional info: Joint pain TECHNIQUE: Imaging protocol: Radiologic exam of the right wrist. Views: 1 or 2 views. Total images: 2 COMPARISON: CR XR HAND RT COMPLETE 08/19/2024 10:37 AM FINDINGS: Bones/joints: No evidence of acute fracture or dislocation. Soft tissues: Soft tissues are within normal limits. IMPRESSION: No evidence of acute fracture or dislocation. PROCEDURE INFORMATION: Exam: XR Right Hand Exam date and time: 09/16/2024 1:57 PM Age: 34 years old Clinical indication: Pain; Hand; Left; Patient HX: Arthritis? ; Additional info: Joint pain TECHNIQUE: Imaging protocol: Radiologic exam of the right hand. Views: 1 or 2 views. COMPARISON: CR XR HAND RT COMPLETE 08/19/2024 10:37 AM FINDINGS: Bones/joints: No evidence of acute fracture or dislocation. Increased sclerosis of the distal aspect of the 4th distal phalanx again noted. Soft tissues: Soft tissues are within normal limits. IMPRESSION: No evidence of acute fracture or dislocation. PROCEDURE INFORMATION: Exam: XR Left Wrist Exam date and time: 09/16/2024 1:57 PM Age: 34 years old Clinical indication: Pain; Hand; Left; Patient HX: Arthritis? ; Additional info: Joint pain TECHNIQUE: Imaging protocol: Radiologic exam of the left wrist. Views: 1 or 2 views. COMPARISON: US EXTREMITY VENOUS BI 08/04/2023 2:47 PM FINDINGS: Bones/joints: No evidence of acute fracture or dislocation. Soft tissues: Soft tissues are within normal limits. IMPRESSION: No evidence of acute fracture or dislocation. PROCEDURE INFORMATION: Exam: XR Left Hand Exam date and time: 09/16/2024 1:57 PM Age: 34 years old Clinical indication: Pain; Hand; Left; Patient HX: Arthritis? ; Additional info: Joint pain TECHNIQUE: Imaging protocol: Radiologic exam of the left hand. Views: 1 or 2 views. COMPARISON: US EXTREMITY VENOUS BI 08/04/2023 2:47 PM FINDINGS: Bones/joints: No evidence of acute fracture or dislocation. Soft tissues: Soft tissues are within normal limits. IMPRESSION: No evidence of acute fracture or dislocation. Dictated and Authenticated by: Chau Maynard MD. Ordering:RADHA Oliver MD
--- NOTE | 2024-09-16 14:28 | DI.VRAD_ITS ---
PROCEDURE INFORMATION: Exam: XR Right Ankle Exam date and time: 09/16/2024 2:03 PM Age: 34 years old Clinical indication: Ankle; Right; Patient HX: Joint pain x 1 year TECHNIQUE: Imaging protocol: Radiologic exam of the right ankle. Views: 3 or more views. Total images: 3 COMPARISON: CR XR ANKLE RT COMPLETE 06/15/2024 10:12 AM FINDINGS: Bones/joints: No evidence of acute fracture or dislocation. Soft tissues: Mild soft tissue swelling. IMPRESSION: 1. Mild soft tissue swelling. 2. No evidence of acute fracture or dislocation. Dictated and Authenticated by: Chau Maynard MD. Ordering:RADHA Oliver MD
--- NOTE | 2024-09-16 14:29 | DI.VRAD_ITS ---
PROCEDURE INFORMATION: Exam: XR Right Foot Exam date and time: 09/16/2024 2:00 PM Age: 34 years old Clinical indication: Foot; Right; Patient HX: Joint pain for 1 year TECHNIQUE: Imaging protocol: Radiologic exam of the right foot. Views: 3 or more views. Total images: 3 COMPARISON: MR LOWER JOINT RT WO 09/03/2023 12:45 PM FINDINGS: Bones/joints: No evidence of acute fracture or dislocation. Soft tissues: Mild soft tissue swelling. IMPRESSION: 1. Mild soft tissue swelling. 2. No evidence of acute fracture or dislocation. Dictated and Authenticated by: Chau Maynard MD. Ordering:RADHA Oliver MD
== END 2024-09-16 14:03 ==
LOC: DI 13:44
PROVIDERS: PCP Nurse Practitioner Family; Visit Provider Nurse Practitioner Family
DX: M25.571 Pain in right ankle and joints of right foot (principal)
CPT/HCPCS: 73120; 73610; 73630

== ENCOUNTER 2024-09-18 12:00 | Outpatient (CLI) | payer MEDICAID, SELFPAY ==
[2024-09-18 08:29] LABS: Abs Immature Grans 0.03 10^3/uL (0.0-0.06); Absolute Basophil Count 0.05 10^3/uL (0.0-0.2); Absolute Eosinophil Count 0.27 10^3/uL (0.0-0.7); Absolute Lymphocyte Count 1.92 10^3/uL (1.2-3.4); Absolute Monocyte Count 0.65 10^3/uL (0.1-0.8); Absolute Neutrophil Count 5.66 10^3/uL (1.2-6.7); Basophils % 0.6 %; Eosinophils % 3.1 %; HCT 41.7 % (40.0-50.0); HGB 13.6 g/dL (13.5-17.5); Immature Grans % 0.3 %; Lymphocytes % 22.4 %; MCH 27.4 pg (27.0-33.0); MCHC 32.6 % (32.0-36.0); MCV 84 fL (80-95); MPV 9.5 fL (8.0-11.0); Monocytes % 7.6 %; Platelet Count 341 10^3/uL (130-400); RBC 4.97 10^6/uL (4.36-5.78); RDW 12.4 % (11.8-14.1); RDW-SD 37.6 fL; WBC 8.58 10^3/uL (4.4-10.8)
[2024-09-18 08:31] LABS: ESR 21 mm/hr (0-15)
[2024-09-18 08:54] LABS: C-Reactive Protein 0.78 mg/dL (<or=0.5); Uric Acid 5.1 mg/dL (3.5-7.2)
[2024-09-19 09:15] LABS: Lyme Ab w Rflx to Lyme Confirm Negative (Negative)
[2024-09-19 10:54] LABS: ANA Interpretation Negative (Negative)
[2024-09-19 10:59] LABS: Cyclic Citrullinated Peptide <2.5 U/mL (<5.0)
[2024-09-21 10:03] LABS: Anaplasma phagocytophilum Negative (Negative); B. miyamotoi PCR Negative (Negative); Babesia divergens/MO-1 Negative (Negative); Babesia duncani Negative (Negative); Babesia microti Negative (Negative); Ehrlichia chaffeensis Negative (Negative); Ehrlichia ewingii/canis Negative (Negative); Ehrlichia muris eauclairensis Negative (Negative)
== END 2024-09-18 12:01 | disposition home or self-care (01) ==
LOC: LBO 12:01
PROVIDERS: PCP Nurse Practitioner Family; Visit Provider Nurse Practitioner Family
DX: M35.3 Polymyalgia rheumatica (principal)
CPT/HCPCS: 36415; 85652; 86200; 87798; 84550; 85025; 86038; 86140; 86618

== ENCOUNTER 2024-09-29 09:33 | Emergency (ER) | payer MEDICAID, SELFPAY ==
[2024-09-29 09:45] VITALS: BP 160/118; PULSE 87; RESP 12; TEMP 36.6; O2SAT 98
[2024-09-29 10:22] VITALS: RESP 13
[2024-09-29] MEDS: Ketorolac 60 MG/2 ML VIAL IM (10:22)
[2024-09-29 10:29] VITALS: BP 128/99; PULSE 84; RESP 13; O2SAT 98
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
[2024-10-02 11:50] LABS: Syphilis Serology (RPR) Negative (Negative)
== END 2024-09-29 11:22 | disposition home or self-care (01) ==
PROVIDERS: Emergency Provider Physician Assistant; PCP Nurse Practitioner Family
DX: M35.3 Polymyalgia rheumatica (principal); M25.571 Pain in right ankle and joints of right foot
CPT/HCPCS: 36415; 96372; 99284; 86592; J1885

== ENCOUNTER 2024-12-08 16:28 | Outpatient (CLI) | payer MEDICAID, SELFPAY ==
[2024-12-08 16:20] LABS: Abs Immature Grans 0.02 10^3/uL (0.0-0.06); Absolute Basophil Count 0.06 10^3/uL (0.0-0.2); Absolute Eosinophil Count 0.44 10^3/uL (0.0-0.7); Absolute Lymphocyte Count 1.76 10^3/uL (1.2-3.4); Absolute Monocyte Count 0.78 10^3/uL (0.1-0.8); Absolute Neutrophil Count 6.18 10^3/uL (1.2-6.7); Basophils % 0.6 %; Eosinophils % 4.8 %; HGB 12.7 g/dL (13.5-17.5); Immature Grans % 0.2 %; MCH 25.8 pg (27.0-33.0); MCHC 33.4 % (32.0-36.0); MCV 77 fL (80-95); MPV 9.1 fL (8.0-11.0); Monocytes % 8.4 %; Platelet Count 321 10^3/uL (130-400); RBC 4.92 10^6/uL (4.36-5.78); RDW 13.8 % (11.8-14.1); RDW-SD 38.4 fL; WBC 9.24 10^3/uL (4.4-10.8)
[2024-12-08 16:22] LABS: ESR 13 mm/hr (0-15)
[2024-12-08 16:38] LABS: ALT 26 U/L (16-63); AST 14 U/L (15-37); Albumin 3.4 g/dL (3.4-5.0); Alkaline Phosphatase 118 U/L (46-116); Anion Gap 2.4 mmol/L (3-11); BUN 7 mg/dL (7-18); Bilirubin, Total 0.34 mg/dL (0.2-1.0); C-Reactive Protein 1.16 mg/dL (<or=0.5); CO2 32.6 mmol/L (21.0-32.0); Chloride 106 mmol/L (98-107); Estimated GFR 102.55 (mL/min/1.73m2); Glucose 120 mg/dL (74-106); Potassium 3.7 mmol/L (3.5-5.1); Sodium 141 mmol/L (136-145); Total Protein 7.2 g/dL (6.4-8.2); Uric Acid 6.9 mg/dL (3.5-7.2)
[2024-12-08 16:47] LABS: TSH (W/Ref FT4) 1.36 uIU/mL (0.36-3.74)
== END 2024-12-08 16:29 | disposition home or self-care (01) ==
LOC: LBO 16:31
PROVIDERS: PCP Nurse Practitioner Family; Visit Provider Internal Medicine
DX: R00.0 Tachycardia, unspecified (principal); M25.541 Pain in joints of right hand; M25.542 Pain in joints of left hand; M25.571 Pain in right ankle and joints of right foot; M25.572 Pain in left ankle and joints of left foot; M25.511 Pain in right shoulder; M25.512 Pain in left shoulder; M54.50 Low back pain, unspecified; G89.29 Other chronic pain
CPT/HCPCS: 36415; 80053; 85652; 84443; 84550; 85025; 86140

== ENCOUNTER 2024-12-17 08:29 | Emergency (ER) | payer MEDICAID, SELFPAY ==
[2024-12-17 08:37] VITALS: PULSE 90; RESP 16; TEMP 36.4; O2SAT 98
[2024-12-17 08:48] VITALS: BP 168/112
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
[2024-12-17] MEDS: Orphenadrine 60 MG/2 ML VIAL IM (09:14)
[2024-12-17] MEDS: Ketorolac 60 MG/2 ML VIAL IM (09:14)
[2024-12-17] MEDS: Lidocaine 5% Patch 1 PATCH TP (09:15)
[2024-12-17 09:38] VITALS: BP 162/118; PULSE 91; RESP 14; O2SAT 98
[2024-12-17] MEDS: Cyclobenzaprine 10 MG TAB, 3 TABS/BTL PO (09:50)
== END 2024-12-17 09:50 | disposition home or self-care (01) ==
PROVIDERS: Emergency Provider Registered Nurse Emergency; PCP Nurse Practitioner Family
DX: M79.18 Myalgia, other site (principal); E78.1 Pure hyperglyceridemia; I10 Essential (primary) hypertension; F17.290 Nicotine dependence, other tobacco product, uncomplicated
CPT/HCPCS: 96372; 99284; J2360; 99283; J1885

== ENCOUNTER 2024-12-27 03:45 | Outpatient (CLI) | payer MEDICAID, SELFPAY ==
[2024-12-27 16:52] LABS: Abs Immature Grans 0.05 10^3/uL (0.0-0.06); Absolute Eosinophil Count 0.32 10^3/uL (0.0-0.7); Absolute Lymphocyte Count 1.91 10^3/uL (1.2-3.4); Absolute Monocyte Count 0.96 10^3/uL (0.1-0.8); Absolute Neutrophil Count 9.34 10^3/uL (1.2-6.7); Basophils % 0.6 %; Eosinophils % 2.5 %; HCT 41.6 % (40.0-50.0); HGB 13.5 g/dL (13.5-17.5); Immature Grans % 0.4 %; Lymphocytes % 15.1 %; MCH 25.4 pg (27.0-33.0); MCHC 32.5 % (32.0-36.0); MCV 78 fL (80-95); MPV 9.3 fL (8.0-11.0); Monocytes % 7.6 %; Neutrophils % 73.8 %; Platelet Count 440 10^3/uL (130-400); RBC 5.31 10^6/uL (4.36-5.78); RDW 13.9 % (11.8-14.1); WBC 12.65 10^3/uL (4.4-10.8)
[2024-12-27 17:01] LABS: Absolute Basophil Count 0.08 10^3/uL (0.0-0.2)
[2024-12-27 18:01] LABS: ALT 28 U/L (16-63); AST 16 U/L (15-37); Albumin 3.7 g/dL (3.4-5.0); Alkaline Phosphatase 147 U/L (46-116); Anion Gap 9.3 mmol/L (3-11); BUN 8 mg/dL (7-18); Bilirubin, Total 0.44 mg/dL (0.2-1.0); CO2 29.7 mmol/L (21.0-32.0); CREATININE 1.2 mg/dL (0.70-1.30); Calcium 9.8 mg/dL (8.5-10.1); Chloride 103 mmol/L (98-107); Glucose 104 mg/dL (74-106); Potassium 3.9 mmol/L (3.5-5.1); Sodium 142 mmol/L (136-145); Total Protein 8.5 g/dL (6.4-8.2)
[2024-12-29 09:05] LABS: HBs Antibody, Quant 38.9 mIU/mL (See Note); Hepatitis B Surface Ab Positive (See Note)
[2024-12-29 09:11] LABS: Hepatitis B Surface Ag Negative (Negative)
[2024-12-29 09:46] LABS: HIV-1/2 Ag & Ab Screen Negative (Negative)
[2024-12-29 10:06] LABS: Hepatitis C Ab w Rflx HCV PCR Negative (Negative)
[2024-12-29 13:18] LABS: TB Interpretation Negative (Negative); TB2 Ag minus Nil 0.02 IU/mL
== END 2024-12-27 03:46 | disposition home or self-care (01) ==
PROVIDERS: PCP Nurse Practitioner Family; Visit Provider Nurse Practitioner Family
DX: M35.3 Polymyalgia rheumatica (principal); L40.0 Psoriasis vulgaris; R94.5 Abnormal results of liver function studies
CPT/HCPCS: 36415; 80053; 86706; 86803; 87340; 87389; 85025; 86480

== ENCOUNTER 2025-01-03 04:34 | Outpatient (CLI) | payer MEDICAID, SELFPAY ==
[2025-01-03 17:04] LABS: ALT 38 U/L (16-63); AST 21 U/L (15-37); Albumin 3.5 g/dL (3.4-5.0); Alkaline Phosphatase 130 U/L (46-116); Anion Gap 8.7 mmol/L (3-11); BUN 10 mg/dL (7-18); Bilirubin, Total 0.2 mg/dL (0.2-1.0); CO2 28.3 mmol/L (21.0-32.0); CREATININE 0.9 mg/dL (0.70-1.30); Calcium 9.1 mg/dL (8.5-10.1); Chloride 105 mmol/L (98-107); Estimated GFR 116.37 (mL/min/1.73m2); Glucose 93 mg/dL (74-106); Potassium 3.5 mmol/L (3.5-5.1); Sodium 142 mmol/L (136-145); Total Protein 7.8 g/dL (6.4-8.2)
== END 2025-01-03 04:35 | disposition home or self-care (01) ==
LOC: LBO 04:34
PROVIDERS: PCP Nurse Practitioner Family; Visit Provider Dermatology
DX: L40.9 Psoriasis, unspecified (principal); L40.50 Arthropathic psoriasis, unspecified
CPT/HCPCS: 80053

== ENCOUNTER 2025-01-10 08:28 | Outpatient (CLI) | payer MEDICAID, SELFPAY ==
--- NOTE | 2025-01-10 08:15 | DI.RAD_ITS ---
Exam(s) XR SHOULDER RT COMPLETE 2+V EXAM: XR SHOULDER RT COMPLETE 2+V CLINICAL HISTORY: Rt shoulder pain, M25.511. TECHNIQUE: 2D digital imaging was performed. Five views. COMPARISON: No exams were available for comparison FINDINGS: BONES: No acute fracture is present. No bony destructive lesion is seen. JOINTS: No dislocation present.The AC joint is not widened. SOFT TISSUE: Normal. IMPRESSION: Unremarkable radiographs of the right shoulder. DATA REPOSITORY: RADIATION DOSE DELIVERED:
--- NOTE | 2025-01-10 08:15 | DI.RAD_ITS ---
Exam(s) XR THUMB RT EXAM: XR THUMB RT CLINICAL HISTORY: Rt thumb pain, M769.644. TECHNIQUE: 2D digital imaging was performed. Three views. COMPARISON: CR,XR XR ARTHRITIS SERIES from 09/16/2024 FINDINGS: BONES: No acute fracture is present. Tiny bony fragment again noted in at the dorsal aspect of the i nterphalangeal joint. No bony destructive lesion is seen. JOINTS: Mild narrowing of the 1st MCP joint and mild periarticular spurring. Mild subluxation. SOFT TISSUE: Normal swelling around 1st metacarpophalangeal joint. IMPRESSION: No soft tissue swelling around the MCP joint. Mild degenerative changes. Mild subluxation could be posttraumatic. DATA REPOSITORY: RADIATION DOSE DELIVERED:
== END 2025-01-10 08:48 ==
PROVIDERS: PCP Nurse Practitioner Family; Visit Provider Anesthesiology Pain Medicine
DX: M25.511 Pain in right shoulder (principal); M79.644 Pain in right finger(s)
CPT/HCPCS: 73030; 73140

== ENCOUNTER 2025-01-30 00:48 | Outpatient (CLI) | payer MEDICAID, SELFPAY ==
--- NOTE | 2025-01-30 06:15 | DI.MRI_ITS ---
Exam(s) MR UPPER JOINT RT WO EXAM: MR UPPER JOINT RT WO CLINICAL HISTORY: rt shoulder pain on range of motion,m25.511. TECHNIQUE: Multiplanar multisequence MRI was performed. COMPARISON: Plain films 10 January 2025 FINDINGS: BONES: There is no fracture. There is edema in the acromion with small amount of surrounding fluid. JOINTS:The acromioclavicular joint is normal. The glenohumeral joint is normal. TENDONS: Supraspinatus: Unremarkable. Infraspinatus: Unremarkable. Subscapularis: Unremarkable. Teres Minor: Unremarkable. Biceps and [place]: Intact. Some fluid at the upper aspect of the biceps tendon. MUSCLES: No atrophy. GLENOID LABRUM: Unremarkable on this noncontrast examination. SOFT TISSUES: Edema in the anterior deltoid muscle adjacent to the acromion. BURSAE: Subacromial and subdeltoid bursae shows a small amount of fluid which could indicate 1st bur sitis. IMPRESSION: Fluid in the subcoracoid subdeltoid bursa could indicate bursitis. No evidence of tendon tear. Edema in the acromion and adjacent anterior deltoid could be posttraumatic. Clinical correlation rec ommended. DATA REPOSITORY:
== END 2025-01-30 01:08 ==
LOC: DI 00:48
PROVIDERS: PCP Nurse Practitioner Family; Visit Provider Anesthesiology Pain Medicine
DX: M25.511 Pain in right shoulder (principal); R93.89 Abnormal findings on diagnostic imaging of other specified body structures
CPT/HCPCS: 73221

== ENCOUNTER 2025-01-30 02:19 | Outpatient (CLI) | payer MEDICAID, SELFPAY ==
[2025-01-30 11:36] LABS: HCT 43.5 % (40.0-50.0); HGB 14.1 g/dL (13.5-17.5); MCH 25.8 pg (27.0-33.0); MCHC 32.4 % (32.0-36.0); MCV 80 fL (80-95); MPV 8.8 fL (8.0-11.0); Platelet Count 398 10^3/uL (130-400); RBC 5.46 10^6/uL (4.36-5.78); RDW 15.3 % (11.8-14.1); RDW-SD 43.3 fL; WBC 9.91 10^3/uL (4.4-10.8)
[2025-01-30 11:52] LABS: ALT 31 U/L (16-63); AST 19 U/L (15-37); Albumin 3.7 g/dL (3.4-5.0); Alkaline Phosphatase 166 U/L (46-116); Anion Gap 8.6 mmol/L (3-11); BUN 6 mg/dL (7-18); Bilirubin, Total 0.4 mg/dL (0.2-1.0); CO2 29.4 mmol/L (21.0-32.0); Calcium 9.6 mg/dL (8.5-10.1); Chloride 104 mmol/L (98-107); Estimated GFR 102.55 (mL/min/1.73m2); Glucose 117 mg/dL (74-106); Potassium 4.1 mmol/L (3.5-5.1); Sodium 142 mmol/L (136-145); Total Protein 7.9 g/dL (6.4-8.2)
== END 2025-01-30 02:20 | disposition home or self-care (01) ==
LOC: LBO 02:19
PROVIDERS: PCP Nurse Practitioner Family; Visit Provider Dermatology
DX: L40.9 Psoriasis, unspecified (principal); L40.50 Arthropathic psoriasis, unspecified
CPT/HCPCS: 36415; 80053; 85027; 85025

== ENCOUNTER 2025-02-14 02:15 | Outpatient (CLI) | payer MEDICAID, SELFPAY ==
--- NOTE | 2025-02-14 08:12 | DI.RAD_ITS ---
Exam(s) XR FOOT RT COMPLETE EXAM: XR FOOT RT COMPLETE CLINICAL HISTORY: Right foot pain,m79.671. TECHNIQUE: 2D digital imaging was performed of the right foot. Three images were obtained. AP, obl ique and lateral views were obtained. COMPARISON: CR,XR XR FOOT RT COMPLETE from 09/16/2024 FINDINGS: BONES: No acute fracture is present. No bony destructive lesion is seen. JOINTS: No dislocation present. There is slight increase in the 4/5 intermetatarsal angle suggesting mild bunionette. The joint spaces are otherwise well maintained. SOFT TISSUE: Normal. IMPRESSION: Slight increase in the 4/5 intermetatarsal angle suggesting mild bunionette deformity. DATA REPOSITORY: RADIATION DOSE DELIVERED:
--- NOTE | 2025-02-14 08:12 | DI.RAD_ITS ---
Exam(s) XR FOOT LT COMPLETE EXAM: XR FOOT LT COMPLETE CLINICAL HISTORY: Left foot pain,m79.672. TECHNIQUE: 2D digital imaging was performed of the left foot. Three images were obtained. AP, obli que and lateral views were obtained. COMPARISON: CR XR FOOT LT COMPLETE from 08/04/2023 FINDINGS: BONES: No acute fracture is present. No bony destructive lesion is seen. There is a bipartite medial sesamoid at the head of the 1st metatarsal. JOINTS: No dislocation present. Mild degenerative changes are seen at the talonavicular joint. The 4 th/5th intermetatarsal angle is 13 degrees. SOFT TISSUE: Normal. IMPRESSION: 1. Minimal degenerative changes seen in the foot. 2. Findings suggestive of a bunionette deformity. DATA REPOSITORY: RADIATION DOSE DELIVERED:
== END 2025-02-14 02:35 ==
LOC: DI 02:15
PROVIDERS: PCP Nurse Practitioner Family; Visit Provider Podiatrist
DX: M79.672 Pain in left foot (principal); M79.671 Pain in right foot; R93.89 Abnormal findings on diagnostic imaging of other specified body structures
CPT/HCPCS: 73630

== ENCOUNTER 2025-02-28 08:35 | Outpatient (CLI) | payer MEDICAID, SELFPAY ==
--- NOTE | 2025-02-28 07:59 | PDOC.PAIN ---
Date of service: 02/28/25 Time of Service: 09:42 Pain Managment Procedure Note Procedure Note Procedure Note: Preoperative diagnosis: 1. Right shoulder pain (M25.511) Right subdeltoid bursitis (M75.51) Postoperative diagnosis: same Procedures: RIGHT sided ultrasound guided Right subdeltoid bursa injection Surgeon: Marlon Smith MD Anesthesia: Local Sedation: none Complications: None EBL: <1ml COMMENT: Description of procedure: The patient was met in the preoperative area.? A discussion of the risk benefits and alternatives ensued.? Informed consent was obtained and surgical harvey was placed over the Right shoulder.? The patient was then brought to the procedure area and placed in the sitting position on the procedure table.? The skin overlying the right upper shoulder and was then widely prepped and draped in normal fashion with chlorhexidine skin prep.? Utilizing ultrasound guidance the right muscle and and supraspinatus muscles were identified. The skin was anesthetized with 2 mL of 1% lidocaine.? Through the anesthetized tissue was passed a 21-gauge 100mm Pajunk needle advanced under ultrasound guidance until the proper needle position was obtained in the subacromial/subdeltoid bursa.? Again under direct ultrasound guidance a total of 3 mL of 0.5% bupivacaine with 40 mg depomedrol was injected filling the bursa.? The needle was then withdrawn and a sterile bandage dressing was placed over the needle insertion site.? ? The patient was subsequently discharged home in satisfactory stable condition with postprocedural instructions and follow-up appoint provided. Plan: f/u PRN PAIN PRE-PROCEDURE 4/10 POST PROCEDURE 0/10 COMMENT: could repeat prn if pt get lasting relief Coding Conscious Sedation used for procedure: No CPT Codes: Inj,Bursa/Tendon w/US Med - ([id number] ~G) Additional Codes: Date of Service (99511) Date of service: 02/28/25
[2025-02-28 09:07] VITALS: BP 149/110; PULSE 98; RESP 20; TEMP 36.5; O2SAT 100
[2025-02-28 09:30] VITALS: PULSE 80; O2SAT 98
[2025-02-28 09:40] VITALS: PULSE 74; O2SAT 97
[2025-02-28] MEDS: Bupivacaine 0.5% Pres-Free 10 ML VIAL IJ (09:43)
[2025-02-28] MEDS: Nerve Block Tray 1 EACH MC (09:43)
[2025-02-28] MEDS: methylPREDNISolone ACETATE 40 MG/ML VIAL IJ (09:43)
== END 2025-02-28 08:36 | disposition home or self-care (01) ==
LOC: PC 08:36
PROVIDERS: PCP Nurse Practitioner Family; Visit Provider Anesthesiology Pain Medicine
DX: M25.511 Pain in right shoulder (principal); M75.51 Bursitis of right shoulder
CPT/HCPCS: 20606; J0665; J1010

== ENCOUNTER 2025-03-15 20:52 | Emergency (ER) | payer MEDICAID, SELFPAY ==
[2025-03-15] VITALS (9 sets, daily range): BP systolic 132–178; BP diastolic 100–156; PULSE 101–123; RESP 11–22; TEMP 36.8; O2SAT 94–97
--- NOTE | 2025-03-15 20:45 | RT.EKG_ITS ---
APPROVED REPORT Exam: Resting ECG Reason for Exam: chest pain Patient Location: E HR:110 bpm ECG Measurements Heart Rate 110 AXIS ME 168 P 46 QRSd 80 QRS -10 QT 322 T 53 QTc 437 Conclusion Sinus tachycardia, rate 110 No interval abnormalities No STEMI LVH No significant changes from priors
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
[2025-03-15 21:19] LABS: Abs Immature Grans 0.02 10^3/uL (0.0-0.06); Absolute Basophil Count 0.04 10^3/uL (0.0-0.2); Absolute Eosinophil Count 0.15 10^3/uL (0.0-0.7); Absolute Monocyte Count 0.98 10^3/uL (0.1-0.8); Absolute Neutrophil Count 2.93 10^3/uL (1.2-6.7); Basophils % 0.7 %; Eosinophils % 2.7 %; HCT 44.3 % (40.0-50.0); Immature Grans % 0.4 %; Lymphocytes % 25.4 %; MCH 27.6 pg (27.0-33.0); MCHC 33.9 % (32.0-36.0); MCV 81 fL (80-95); MPV 9.3 fL (8.0-11.0); Monocytes % 17.8 %; Platelet Count 296 10^3/uL (130-400); RBC 5.44 10^6/uL (4.36-5.78); RDW 15.9 % (11.8-14.1); WBC 5.52 10^3/uL (4.4-10.8)
[2025-03-15] MEDS: Aspirin 81 MG CHEW 324 MG CH (21:43)
[2025-03-15 21:45] LABS: ALT 41 U/L (16-63); AST 29 U/L (15-37); Albumin 4.2 g/dL (3.4-5.0); Alkaline Phosphatase 135 U/L (46-116); Anion Gap 7.4 mmol/L (3-11); BUN 12 mg/dL (7-18); Bilirubin, Total 0.5 mg/dL (0.2-1.0); CO2 28.6 mmol/L (21.0-32.0); CREATININE 0.9 mg/dL (0.70-1.30); Calcium 9.2 mg/dL (8.5-10.1); Chloride 100 mmol/L (98-107); D-Dimer 198 ng/mlFEU (<500); Estimated GFR 116.37 (mL/min/1.73m2); Glucose 100 mg/dL (74-106); Lipase 28 U/L (<78); Magnesium 1.8 mg/dL (1.8-2.4); Potassium 3.6 mmol/L (3.5-5.1); Sodium 136 mmol/L (136-145); TSH (W/Ref FT4) 1.72 uIU/mL (0.36-3.74); Total Protein 7.9 g/dL (6.4-8.2); Troponin I 11 ng/L (<or=76)
--- NOTE | 2025-03-15 22:02 | DI.RAD_ITS ---
Exam(s) XR CHEST 2V PA LATERAL EXAM: XR CHEST 2V PA LATERAL CLINICAL HISTORY: chest pain TECHNIQUE: 2D digital imaging was performed. Two views. COMPARISON: CR,XR XR CHEST 2V PA LATERAL from 01/28/2024 FINDINGS: HEART: Normal size. Aorta: Not dilated. PULMONARY VASCULATURE: Normal. MEDIASTINUM: Unremarkable. LUNGS: Clear. PLEURAL SPACE: No pleural effusion or pneumothorax. BONE:Unremarkable for age. SOFT TISSUES: Unremarkable. IMPRESSION: No acute abnormality. DATA REPOSITORY: RADIATION DOSE DELIVERED:
--- NOTE | 2025-03-15 22:30 | DI.VRAD_ITS ---
PROCEDURE INFORMATION: Exam: XR Chest Exam date and time: 03/15/2025 10:02 PM Age: 34 years old Clinical indication: Chest pressure; Chest pain TECHNIQUE: Imaging protocol: Radiologic exam of the chest. Views: 2 views. COMPARISON: CR XR CHEST 2V PA LATERAL 01/28/2024 8:11 PM FINDINGS: Lungs: Unremarkable. No consolidation. Pleural spaces: Unremarkable. No pleural effusion. No pneumothorax. Heart/Mediastinum: Unremarkable. No cardiomegaly. Bones/joints: Unremarkable. IMPRESSION: No acute findings. Dictated and Authenticated by: Amrik Soriano MD. Orderin Rebecca Bowers MD
== END 2025-03-15 22:20 | disposition home or self-care (01) ==
PROVIDERS: Emergency Provider Physician Assistant; PCP Nurse Practitioner Family
DX: R07.9 Chest pain, unspecified (principal); R00.0 Tachycardia, unspecified; I10 Essential (primary) hypertension; F17.290 Nicotine dependence, other tobacco product, uncomplicated
CPT/HCPCS: 80053; 83690; 93005; 99285; 71046; 83735; 84443; 84484; 85025; 85379; 93010; 99284

== ENCOUNTER 2025-03-22 08:07 | Outpatient (RCR) | payer MEDICAID, SELFPAY | END 2025-03-24 23:59 | disposition home or self-care (01) | LOC: CARDOPNVT 08:07 | PROVIDERS: PCP Nurse Practitioner Family; Referring Provider Nurse Practitioner Family; Visit Provider Internal Medicine Cardiovascular Disease | DX: R07.9 Chest pain, unspecified (principal) | CPT/HCPCS: 93225 ==

== ENCOUNTER 2025-03-25 14:18 | Outpatient (RCR) | payer MEDICAID, SELFPAY ==
--- NOTE | 2025-03-30 08:18 | W.HOLTRPT ---
Date of service: 03/30/25 Time of Service: 08:18 Holter Monitor Report Referring Provider:: Gregorio Major Indications:: Chest pain Holter Monitor Note: This is a 48-hour Holter monitor. Rhythm throughout was sinus with an average heart rate of 92. Minimum was 55, maximum 137 There were very rare isolated atrial and ventricular ectopic beats. There was no atrial fibrillation, no high-grade AV block, no pauses greater than 3 seconds. No symptoms were reported
== END 2025-04-23 23:59 | disposition home or self-care (01) ==
LOC: CARDOPNVT 14:18
PROVIDERS: PCP Nurse Practitioner Family; Referring Provider Nurse Practitioner Family; Visit Provider Nurse Practitioner Family
DX: R07.9 Chest pain, unspecified (principal)
CPT/HCPCS: 93226

== ENCOUNTER 2025-05-30 01:29 | Outpatient (CLI) | payer MEDICAID, SELFPAY ==
--- NOTE | 2025-05-30 07:45 | DI.CT_ITS ---
Exam(s) CT ABDOMEN CTA EXAM: CT ABDOMEN CTA CLINICAL HISTORY: ? renal artery stenosis,severe hypertension,i10. TECHNIQUE: Imaging Protocol: Axial CT angiography was performed with multi- slice acquisition and multi-planar and/or 3D reconstructions. CONTRAST MATERIAL: Intravenous: Omnipaque 350 Contrast volume:100mL Oral: No COMPARISON: CT CT ABDOMEN PELVIS W from 02/26/2019 FINDINGS: ABDOMEN AND PELVIS: Abdomen: Celiac axis/mesenteric arteries: No evidence of occlusion or significant stenosis. Renal Arteries: No evidence of occlusion or significant stenosis. There is a single renal artery perfusing each kidney. Aorta: No evidence of occlusion or significant stenosis. No aneurysm or dissection. Iliac Arteries: No evidence of occlusion or significant stenosis. ABDOMEN: Lung bases: Unremarkable. Liver: Normal density. No measurable mass. Portal, Superior Mesenteric, and Splenic Veins: Unremarkable. Gallbladder and Biliary Tract: No radiodense calculus or dilation. Pancreas: Normal density, no abnormal calcifications or inflammatory process. Spleen: Normal. Adrenals: No masses seen. Kidneys: Normal size, contour and axis. No radiodense stones or obstructive uropathy. No masses seen. Bowel: No obstruction or bowel wall thickening. Peritoneal Cavity: No ascites, collection or mesenteric inflammatory response. No free air. Lymph Nodes: Within normal limits. Bones: Unremarkable. Soft Tissues: Unremarkable. IMPRESSION: 1. No atherosclerotic disease or evidence of renal artery stenosis. 2. No acute abdominal process. RADIATION DOSE DELIVERED: 516.8mGy.cm Total DLP 516.8mGy.cm Total DLP DATA REPOSITORY: All CT scans at this facility are submitted to the National Radiology Data Registry (NRDR) Dose Index Registry (DIR) with the [employer] (ACR). RADIATION OPTIMIZATION: All CT scans at this facility use at least one of these dose optimization techniques: automated exposure control; mA and/or kV adjustment per patient size (includes targeted exams where dose is matched to clinical indication); or iterative reconstruction.
[2025-05-30 13:21] LABS: Estimated GFR 120.59 (mL/min/1.73m2)
[2025-05-30] MEDS: Normal Saline - Diluent 50 ML VIAL IJ (13:49)
[2025-05-30] MEDS: Omnipaque 350 MG/ML 500 ML BTL-Imaging package 100 ML IJ (13:52)
== END 2025-05-30 01:49 ==
LOC: DI 01:29
PROVIDERS: PCP Nurse Practitioner Family; Visit Provider Nurse Practitioner Family
DX: I10 Essential (primary) hypertension (principal)
CPT/HCPCS: 74175; 82565

== ENCOUNTER 2025-06-01 21:41 | Outpatient (REF) | payer MEDICAID, SELFPAY | END 2025-06-01 21:42 | disposition home or self-care (01) | LOC: LBN 21:41 | PROVIDERS: PCP Nurse Practitioner Family; Visit Provider Physician Assistant | DX: H92.11 Otorrhea, right ear (principal) | CPT/HCPCS: 87070; 87205 ==

== ENCOUNTER 2025-06-05 08:20 | Outpatient (CLI) | payer MEDICAID, SELFPAY ==
[2025-06-06 18:01] LABS: Dexamethasone Suppression 1.2 ug/dL (See Note)
[2025-06-10 09:26] LABS: Renin Activity, Plasma <0.6 ng/mL/h
== END 2025-06-05 08:21 | disposition home or self-care (01) ==
LOC: LBO 08:21
PROVIDERS: PCP Nurse Practitioner Family; Visit Provider Nurse Practitioner Family
DX: I10 Essential (primary) hypertension (principal)
CPT/HCPCS: 36415; 80400; 82088; 82533; 84244

== ENCOUNTER 2025-07-30 02:33 | Outpatient (CLI) | payer MEDICAID, SELFPAY ==
--- NOTE | 2025-07-30 14:30 | DI.MRI_ITS ---
Exam(s) MR LOWER JOINT RT WO EXAM: MR LOWER JOINT RT WO CLINICAL HISTORY: RT ANKLE PAIN M25.571 EVAL FOR RT PERONEAL TEAR TECHNIQUE: Multiplanar multisequence MRI was performed without intravenous contrast. COMPARISON: MR MR LOWER JOINT RT WO from 09/03/2023 CR XR FOOT RT COMPLETE from 02/14/2025 FINDINGS: BONES/JOINTS: No fracture or contusion pattern. There are scattered foci of hyperintense signal seen on the T2 and STIR images which are nonspecific and may be reactive. There is mild edema seen in the posterior lateral talar dome. No talar dome defect is seen. The ankle mortise is maintained. No joint effusion is present. LIGAMENTS: The tibiofibular and calcaneofibular ligaments are intact. The anterior talofibular ligament is unremarkable. There is very mild edema seen around the posterior talofibular ligament. The deltoid ligament is intact. The syndesmosis is unremarkable. Sinus tarsi is normal. MUSCULOTENDINOUS STRUCTURES: Achilles tendon: Unremarkable. Plantar fascia: Unremarkable. Anterior Extensor tendons: Unremarkable. Posterior Tibialis: Unremarkable. Flexor Digitorum longus: Unremarkable. Flexor Hallucis longus: Unremarkable. Peroneus longus: Unremarkable. Peroneus brevis:Unremarkable. SOFT TISSUES: Unremarkable. OTHER FINDINGS: There is a small amount of fluid seen around the os trigonum. There is also mild fluid signal between the os trigonum and the talus. Mild subcutaneous marrow edema is seen in the os and in the adjacent talus. 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 IMPRESSION: 1. There is no evidence of a peroneal longus or brevis tendon tear. 2. Mild edema seen around the posterior talofibular ligament and findings associated with the os trigonum which may represent posterior ankle impingement. 3. No evidence of an occult fracture. DATA REPOSITORY:
== END 2025-07-30 02:53 ==
LOC: DI 02:34
PROVIDERS: PCP Nurse Practitioner Family; Visit Provider Orthopaedic Surgery
DX: M25.571 Pain in right ankle and joints of right foot (principal); R60.0 Localized edema
CPT/HCPCS: 73721